=== PATIENT | male | born 1960 | race Caucasian/White ===

== ENCOUNTER → 2020-07-12 14:53 | Outpatient (BNVA) | payer MEDICARE, SELFPAY | PROVIDERS: Family Provider Nurse Practitioner Family; PCP Nurse Practitioner Family; Visit Provider Emergency Medicine | DX: Z20.828 Contact with and (suspected) exposure to other viral communicable diseases (principal); J40 Bronchitis, not specified as acute or chronic; R68.89 Other general symptoms and signs | CPT/HCPCS: 87400; 87635 ==

== ENCOUNTER 2021-09-25 18:03 | Inpatient (IN) | payer OTHER, MEDICARE, MEDICAID, SELFPAY ==
[2021-09-25 18:37] VITALS: BP 154/99; PULSE 84; RESP 15; TEMP 36.7; O2SAT 96; BMI 32.5
[2021-09-25 18:43] VITALS: RESP 15
--- NOTE | 2021-09-25 18:49 | XRR_ITS ---
PROCEDURE INFORMATION: Exam: XR Chest Exam date and time: 09/25/2021 6:49 PM Age: 61 years old Clinical indication: Chest wall pain; Prior surgery; Surgery date: 6+ months; Surgery type: Stents; Additional info: Chest pain TECHNIQUE: Imaging protocol: XR of the chest. Views: 1 view. COMPARISON: No relevant prior studies available. FINDINGS: Lungs: Unremarkable. No consolidation. Pleural spaces: Unremarkable. No pleural effusion. No pneumothorax. Heart/Mediastinum: Unremarkable. No cardiomegaly. Bones/joints: Unremarkable. XR/XR chest 1V portable [id number] IMPRESSION: No acute findings.
[2021-09-25 18:57] LABS: Basophils % 0.4 %; Eosinophils # 0.2 10^3/uL (0.0-0.8); Hematocrit 42.9 % (42.0-52.0); Hemoglobin 14.7 g/dL (11.7-16.6); Lymphocytes # 2.9 10^3/uL (0.8-4.8); Lymphocytes % 36.8 %; Mean Corpuscular HGB Conc 34.3 g/dL (30.0-36.0); Mean Corpuscular Hemoglobin 28.2 pg (28.0-34.0); Mean Corpuscular Volume 82.3 fl (80-94); Mean Platelet Volume 10.2 fL (7.4-10.4); Monocytes # 0.6 10^3/uL (0.2-0.9); Monocytes % 7.4 %; Neutrophils # 4.18 10^3/uL (1.8-7.7); Neutrophils % 53.1 %; Nucleated Red Blood Cells % 0 %; Platelet Count 279 10^3/cmm (130-400); Red Blood Count 5.21 10^6/uL (4.1-5.3); Red Cell Distribution Width 12.9 % (12.1-15.1); White Blood Count 7.9 10^3/uL (4.0-10.0)
[2021-09-25 19:15] LABS: Blood Urea Nitrogen 10 mg/dL (8-23); Calcium 9.1 mg/dL (8.5-10.5); Carbon Dioxide 23 mmol/L (22-29); Chloride 94 mmol/L (98-107); Glomerular Filtration Rate 56.3 mL/min (90-130); Osmolality Calculated 295 mOsm/kg (285-295); Sodium 131 mmol/L (136-145); Troponin(5th) Baseline 14 ng/L (0-15)
[2021-09-25 19:22] LABS: D Dimer 0.45 ug/mIFEU (0-0.59)
[2021-09-25 19:28] LABS: Anion Gap 18.6 (5-19); Glucose 538 mg/dL (65-115); Potassium 4.6 mmol/L (3.5-5.1)
[2021-09-25] MEDS: sodium chloride 0.9% 1,000 ML 999 ML IV (20:10)
--- NOTE | 2021-09-25 20:10 | ED_ITS ---
HPI - General Adult General: Chief complaint: Chest Pain Stated complaint: SHARP BURNING CHEST PAIN Time Seen by Provider: 09/25/21 18:49 History of Present Illness: HPI narrative: CC: Chest Pain HPI: This is a [61] yo patient hx of CAD s/p stents x 6 followed by Cardiology from [facility] presenting to the ED complaining of worsening chest pain and dyspnea x 1 week. Pain is not tearing in nature and does not radiate to the back. Pain not associated with vomiting or PO intake. Denies any recent sympathomimetic drug use. Patient denies any cough. Denies palpitations, dysphagia, diaphoresis, radiation of pain to bilateral arms, jaw. Denies F/N/V/D. Patient denies any recent immobility, surgery, unilateral leg swelling, or prior PE. Patient denies any orthopnea. Onset: 1 week ago Duration: ongoing for the last week Location: home Severity: mild/moderate Associated symptoms: Reports chest pain and dyspnea; Deny nausea, rash, palpitations or vomiting Review of Systems Const: Denies: fever(s) or chills Eyes: Denies: change in vision ENMT: Denies: mouth pain Card: Reports: chest pain; Denies: palpitations Resp: Reports: dyspnea; Denies: non-productive cough GI: Denies: abdominal pain, nausea, vomiting or diarrhea : Denies: dysuria Musc: Denies: extremity pain Skin/Breast: Denies: rash or new lesions Neuro: Denies: weakness in extremities Psych: Reports: other (Normal mood) Alejandro/Lymph: Denies: easy bruising PFS ED PFSH: Medical History (Updated 09/25/21 @ 20:21 by Ion Shafer MD) CAD (coronary artery disease) Chest pain Chronic obstructive pulmonary disease Shortness of breath Surgical History (Updated 09/25/21 @ 17:08 by EUNICE Martin) Coronary angioplasty status Social History Smoking and tobacco status: former smoker Alcohol intake: never Physical Exam Const: COMMON NORMALS: alert HENMT: COMMON NORMALS: atraumatic HEAD & SCALP: atraumatic MOUTH: moist mucous membranes not abnormal Eye: COMMON NORMALS: EOMs intact bilaterally and conjunctivae normal CONJUNCTIVA: Yes conjunctivae normal Neck/C-Spine: COMMON NORMALS: full ROM and supple Resp: COMMON NORMALS: normal respiratory effort and clear to auscultation bilaterally AUSCULTATION: clear to auscultation bilaterally Cardio: COMMON NORMALS: regular rate RATE: regular rate GI: COMMON NORMALS: Soft to palpation and non-tender PALPATION: Yes Soft to palpation Extremity: COMMON NORMALS: full ROM Neuro: SENSORIUM/ORIENTATION: Yes alert MOTOR EXAM: No Abnormal motor strength present and Other motor observations present (no focal motor deficits) Psych: COMMON NORMALS: speech normal SPEECH: Yes normal speech MOOD & AFFECT: Yes euthymic mood Course Vital Signs: Vital signs: Vital Signs Temperature 98.0 F 09/25/21 18:37 Pulse Rate 84 09/25/21 18:37 Respiratory Rate 15 09/25/21 18:43 Blood Pressure 154/99 09/25/21 18:37 Pulse Oximetry 96 09/25/21 18:37 MDM - General Adult MDM Narrative: Medical decision making narrative: [61]yo patient w/ hx of CAD s/p stents x 6 presenting to the ED with evaluation of 1 week of worsening chest pain and fatigue. HDS, pulse 2+ radially bilaterally, no signs of fluid overload, AAOx3, neuro exam intact. Given History and Exam today I have no suspicion for ACS, Pneumothorax, Pneumonia, Pulmonary Embolus, Tamponade, Aortic Dissection or other emergent problems as a cause for this presentation. Workup: ECG x 2, CXR, CBC, BMP, Troponin x 2, Dimer Interventions: ASA, nitroglycerin sublingual Findings: ECG: No overt evidence of STEMI, hyperacute T waves, localizable STD or T wave inversions. No evidence of Brugada?s sign, delta wave, epsilon wave, significantly prolonged QTc, or malignant arrhythmia. No Q waves. Other Labs unremarkable for emergent problems. CXR: Without PTX, PNA, or widened mediastinum Last Stress Test: over 1 year ago Dimer wnl [9:00pm] On reassessment, the patient is HDS, no complaints of persistent chest pain in the ED after evaluation. ECG is non-ischemic. Dimer wnl. Patient will admitted for management of high risk chest pain given no recent stress AND worsening chest pain. Glucose of 538 that improved with insulin. Disposition: Admission Lab Data: Labs: Lab Results 09/25/21 09/25/21 09/25/21 18:45 18:45 18:45 WBC 7.9 10^3/uL 10^3/ uL (4.0-10.0) RBC 5.21 10^6/uL 10^6 /uL (4.1-5.3) Hgb 14.7 g/dL g/dL (11.7-16.6) Hct 42.9 % % (42.0-52.0) MCV 82.3 fl fl (80-94) MCH 28.2 pg pg (28.0-34.0) MCHC 34.3 g/dL g/dL (30.0-36.0) RDW 12.9 % % (12.1-15.1) Plt Count 279 10^3/cmm 10^3 /cmm (130-400) MPV 10.2 fL fL (7.4-10.4) Neut % (Auto) 53.1 % % Lymph % (Auto) 36.8 % % [place] % (Auto) 7.4 % % Eos % (Auto) 2.0 % % Baso % (Auto) 0.4 % % Neut # (Auto) 4.18 10^3/uL 10^3 /uL (1.8-7.7) Lymph # (Auto) 2.9 10^3/uL 10^3/ uL (0.8-4.8) [place] # (Auto) 0.6 10^3/uL 10^3/ uL (0.2-0.9) Eos # (Auto) 0.2 10^3/uL 10^3/ uL (0.0-0.8) Baso # (Auto) 0.0 10^3/uL 10^3/ uL (0.0-0.1) Nucleated RBC % (a uto) 0 % % Nucleated RBCs # 0.0 /100WBC /100W BC D-Dimer 0.45 ug/mIFEU ug/ mIFEU (0-0.59) Specimen Type Sample Site ABG pH ABG pCO2 ABG pO2 ABG HCO3 ABG Base Excess Shaun Test Hematocrit O2 Delivery Device FiO2 Outplacement Consultant ID Sodium 131 mmol/L L mmol /L (136-145) Potassium 4.6 mmol/L mmol/L (3.5-5.1) Chloride 94 mmol/L L mmol/ L (98-107) Carbon Dioxide 23 mmol/L mmol/L (22-29) Anion Gap 18.6 (5-19) BUN 10 mg/dL mg/dL (8-23) Creatinine 1.3 mg/dL H mg/dL (0.7-1.2) GFR Calculation 56.3 mL/min L mL/ min (90-130) Glucose 538 mg/dL H* mg/d L (65-115) Calculated Osmolal ity 295 mOsm/kg mOsm/ kg (285-295) Calcium 9.1 mg/dL mg/dL (8.5-10.5) Troponin T Baselin e 09/25/21 09/25/21 18:45 20:09 WBC RBC Hgb Hct MCV MCH MCHC RDW Plt Count MPV Neut % (Auto) Lymph % (Auto) [place] % (Auto) Eos % (Auto) Baso % (Auto) Neut # (Auto) Lymph # (Auto) [place] # (Auto) Eos # (Auto) Baso # (Auto) Nucleated RBC % (a uto) Nucleated RBCs # D-Dimer Specimen Type Arterial Sample Site Radial, right ABG pH 7.46 H (7.35-7.45) ABG pCO2 37.8 mmHg mmHg (35-45) ABG pO2 87.9 mmHg mmHg (80.0-100.0) ABG HCO3 26.5 mmol/L H mmo l/L (22-26) ABG Base Excess 2.6 mmol/L H mmol /L (-2.0-2.0) Shaun Test Pos Hematocrit 46.1 % % (42-52) O2 Delivery Device Room air FiO2 21.0 % % Outplacement Consultant ID Buttr Sodium Potassium Chloride Carbon Dioxide Anion Gap BUN Creatinine GFR Calculation Glucose Calculated Osmolal ity Calcium Troponin T Baselin e 14 ng/L ng/L (0-15) Imaging Data^: Other Imaging: Radiologist's impression: [address] [id number] ReportSigned Patient: Kumar Whelan #: [id number]: 1Acct#:[id number]/Sex: 61 / MADM Date: 09/25/21Loc: ERRoom/Bed:Attending Dr: Ordering Provider/Ordering MD: Ion Shafer MD Date of Service: 09/25/21 Procedure(s): XR chest 1V portable [id number] Accession Number(s): [id number] Report Number: [id number] PROCEDURE INFORMATION: Exam: XR Chest Exam date and time: 09/25/2021 6:49 PM Age: 61 years old Clinical indication: Chest wall pain; Prior surgery; Surgery date: 6+ months; Surgery type: Stents; Additional info: Chest pain TECHNIQUE: Imaging protocol: XR of the chest. Views: 1 view. COMPARISON: No relevant prior studies available. FINDINGS: Lungs: Unremarkable. No consolidation. Pleural spaces: Unremarkable. No pleural effusion. No pneumothorax. Heart/Mediastinum: Unremarkable. No cardiomegaly. Bones/joints: Unremarkable. XR/XR chest 1V portable [id number] IMPRESSION: No acute findings. Dictated By:Randall Aparicio DOSigned By:Randall Aparicio DOSigned Date/Time:09/25/21 1936DD/ 1849 Discharge Plan Discharge Patient Disposition: Admitted As Inpatient Clinical Impression: Chest pain, Hyperglycemia Condition: Stable Coding Level of Care Code ED Professor Of Musicology for Chg Fwd Exam Comprehensive
[2021-09-25 20:21] LABS: ABG PCO2 37.8 mmHg (35-45); ABG PH Result 7.46 (7.35-7.45); Arterial Blood Gas Hematocrit 46.1 % (42-52); Base Excess ABG 2.6 mmol/L (-2.0-2.0); Blood Gas Allen Test Pos; Blood Gas Sample Site Radial, right; Blood Gas Sample Type Arterial; HCO3 ABG 26.5 mmol/L (22-26); Oxygen Device ROOM AIR; PO2 ABG 87.9 mmHg (80.0-100.0)
[2021-09-25] MEDS: nitroglycerin 0.4 mg sublingual Tablet SUBLINGUAL (20:34)
[2021-09-25] MEDS: insulin lispro 100 unit/1 mL 10 UNIT SUBCUT (20:35)
[2021-09-25] MEDS: aspirin 325 mg Tablet PO (20:35)
--- NOTE | 2021-09-25 20:50 | ECG_ITS ---
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 Measurements Intervals [place] Rate: 60 P: 17 WV: 186 QRS: -7 QRSD: 93 T: 60 QT: 403 QTc: 405 Interpretive Statements SINUS RHYTHM NONSPECIFIC T-WAVE ABNORMALITY No previous ECG available for comparison Electronically Signed On 09-25-2021 21:57:24 OYSTER GROWER by Nova Irby M.D. [email or web address]
--- NOTE | 2021-09-25 21:30 | P.HP_ITS ---
Providers/Chief Complaint Admitting Physician: Katelyn Stallworth MD Primary Care Provider: Dr. Byrne at [facility] Chief Complaint: SHARP BURNING CHEST PAIN History of Present Illness Kumar Whelan is a 61 year old male who presented to [facility] with chest pain and shortness of breath. Symptoms began around 6 days ago. He started getting more short of breath primarily when lying down flat. Along with this he has a sharp burning sensation in the center and lower portions of his chest. At its worst this pain is a 6 out of 10. Time of evaluation he milind cribed it as a 1-2 out of 10. No radiation of the pain although he does also describe some discomfort in the epigastric area. In addition to lying down flat the discomfort comes on when he tries to take in a deep breath of cold air. He describes some runny nose and a sore throat associated with bad taste in the back of his mouth off and on. He denies any fevers but does describe some intermittent chills. Unsure if it simply related to the colder weather. He has had both productive and nonproductive cough. Shortness of breath has occurred with exertion but no more than usual necessarily. He has had some dizziness with walking at times lately. Sometimes he feels like the mucus that he is trying to cough up gets stuck. No blood has been noted. He does describe a little bit of increased swelling primarily appreciated when he goes to take his socks off. He has not had any recent sick contacts. He did get 2 doses of COVID vaccination but has not had a booster. He has had nausea but no episode of vomiting. In talking with him for a while he starts to describe his epigastric pain is more severe than the chest pain. At its worst it is a 7 out of 10. He used to take a stomach pill but ran out of it and has not been able to get a refill from the OR. He had run out of it maybe 2 weeks ago. He had tried to be seen at a OR clinic to get his medications refilled without success lately. He has a known history of coronary artery disease and whenever he mentions that he has chest pain he says he gets sent elsewhere for evaluation. He does describe change in bowel habits lately with intermittently explosive stools and other times the opposite problem but does not really consider this change consistent with diarrhea or constipation. He also describes the upper part of his stomach pooching out more than the rest of his abdomen and hurting. He denies any intra-abdominal surgery though he did have ureteral stent one time for kidney stones. Other than not having his stomach medicines he denies any other recent changes in medicines. In the emergency room his initial troponin was normal. EKG did not show acute ST segment changes. Given his cardiac history request was made for admission as he has not had cardiac evaluation in more than a year by his report. In addition to his complaints he was noted to have a blood sugar of 538 which is elevated from the usual 200-300 that he says he has when he checks his blood sugars at home. Review of Systems Const: Denies: fever(s), chills, change in appetite or change in weight Eyes: Denies: change in vision ENMT: Reports: throat pain (mild, described as a burning sensation, bad taste in back of throat) and nasal congestion Card: Reports: chest pain, edema, dyspnea on exertion and orthopnea; Denies: palpitations Resp: Denies: dyspnea, productive cough or non-productive cough GI: Reports: abdominal pain, nausea, heartburn, early satiety, bloating and change in bowel habits (quite variable, occassionally explosive, not really diarrhea/constipation); Denies: vomiting, excessive flatus, hematochezia or melena : Denies: difficulty urinating or hematuria Musc: Reports: back pain (chronic) Skin/Breast: Denies: rash or sores Neuro: Reports: headache(s) and dizziness; Denies: numbness in extremities, weakness in extremities or difficulty walking Psych: Denies: anxiety or depression Endo: Reports: polyuria, polydipsia and tired all the time Alejandro/Lymph: Denies: easy bruising or easy bleeding Medications/Allergies Home Medications Medication Instructions Recorded Confirmed Last Taken Type aspirin 81 mg tablet,delayed 81 mg PO DAILY 01/13/20 09/25/21 09/25/21 History release atorvastatin 80 mg tablet 80 mg PO DAILY 01/13/20 09/25/21 09/25/21 History clopidogrel 75 mg tablet 75 mg PO DAILY 01/13/20 09/25/21 09/25/21 History gabapentin 300 mg capsule 300 mg PO TID 01/13/20 09/25/21 09/25/21 History metformin 1,000 mg tablet 1,000 mg PO BID 01/13/20 09/25/21 09/25/21 History metoprolol succinate 25 mg 12.5 mg PO DAILY 01/13/20 09/25/21 09/25/21 History tablet,extended release 24 hr pantoprazole 20 mg tablet,delayed 20 mg PO DAILY 01/13/20 09/25/21 Unknown History release trazodone 100 mg tablet 100 mg PO DAILY 01/13/20 09/25/21 09/24/21 History albuterol sulfate 90 mcg/actuation 2 puff INHALATION Q6H PRN #8.5 gm 07/12/20 09/25/21 09/24/21 Rx aerosol inhaler fluticasone propionate 50 1 spray INTRANASAL BID #18.2 ml 05/31/21 09/25/21 Unknown Rx mcg/actuation nasal spray,suspension loratadine 10 mg tablet 10 mg PO DAILY #60 tab 05/31/21 09/25/21 09/25/21 Rx budesonide-formoterol HFA 160 2 inh INHALATION BID #10.2 g 06/06/21 09/25/21 Unknown Rx mcg-4.5 mcg/actuation aerosol inhaler hydrocortisone 10 mg tablet 10 mg PO TID 09/25/21 09/25/21 09/25/21 History insulin glargine 42 unit SUBCUT BID 09/26/21 09/26/21 09/25/21 History insulin lispro [Humalog U-100 14 unit SUBCUT TIDWM 09/26/21 09/26/21 09/25/21 H istory Insulin] isosorbide mononitrate 30 mg PO DAILY 09/26/21 Unknown History Allergies Allergy/AdvReac Type Severity Reaction Status Date / Time prednisone AdvReac agitation, Verified 09/25/21 16:39 vomiting Additional Medication Information The above medication, while showing as confirmed, is not necessarily accurate. The list is from 2019. Patient does not have his current medications here with him[facility] He is on lantus 42 units twice per day and humalog 14 units 3 times per day with meals. Others may be the same but not certain presently. PFSH Acute PFSH: Medical History (Updated 09/25/21 @ 22:21 by Katelyn Stallworth MD) Benign prostate hyperplasia CAD (coronary artery disease) Chronic obstructive pulmonary disease Diabetes mellitus, type II, insulin dependent Fatty liver GERD (gastroesophageal reflux disease) Hyperlipidemia Hypertension Kidney stones Surgical History (Updated 09/25/21 @ 21:56 by Katelyn Stallworth MD) History of coronary artery stent placement reports 6-7 stents, done at [facility] History of shoulder surgery as a child History of urethral stent Family History (Updated 09/26/21 @ 03:15 by Katelyn Stallworth MD) Father CAD (coronary artery disease) Lung cancer Diabetes Social History (Updated 09/25/21 @ 21:57 by Katelyn Stallworth MD) Smoking and tobacco status: former smoker Alcohol intake: former Former alcohol use details: quit ~ 16 years ago, former heavy drinker Substance/Drug Use: never Household members: spouse Marital status: service: Yes Vitals/I&O/Wt Last Vital Signs Temp 98.0 F 09/25/21 18:37 Pulse 84 09/25/21 18:37 Resp 15 09/25/21 18:43 BP 154/99 09/25/21 18:37 Pulse Ox 96 09/25/21 18:37 Weight last 48 hrs Weight 91.626 kg Physical Exam Narrative: EXAM NARRATIVE: Constitutional: Awake and alert, looks uncomfortable, cooperative HEENT: Normocephalic, atraumatic, mild conjunctival injection, nasopharynx with clear rhinorrhea, oropharynx with dry membranes, no lesions noted, no cobblestoning Neck: Large but supple Respiratory: No rales rhonchi or wheezes noted, respirations are shallow, not reaching full expansion in part because of discomfort in the epigastric area which he holds with attempts at deep inspiration Cardiovascular: Regular rhythm, no murmurs, gallops or rubs, 2+ pulses x4, equal Abdomen: Soft, rotund, tender in the epigastrium with some voluntary guarding but no rebound, with change in positions in bed, has an approximately 6in w x 4in l bulging in the midline in epigastic/supraumbilical area, resolves with relaxing of abdominal muscles, no discoloration, no definitive palpable defect noted but habitus limits evaluation, postive normoactive bowel sounds, no tympany Extremities: trace ankle edema, no calf tenderness Skin: Dry, no rashes Neuro: Speech clear, face symmetric, moves all extremities Psych: Normal affect, anxious appearing Data : 09/25/21 18:45 09/25/21 18:45 Other Labs: Radiology Impressions Chest X-Ray 09/25/21 18:49 IMPRESSION: No acute findings. Laboratory Results WBC 7.9 10^3/uL (4.0-10.0) 09/25/21 18:45 RBC 5.21 10^6/uL (4.1-5.3) 09/25/21 18:45 Hgb 14.7 g/dL (11.7-16.6) 09/25/21 18:45 Hct 42.9 % (42.0-52.0) 09/25/21 18:45 MCV 82.3 fl (80-94) 09/25/21 18:45 MCH 28.2 pg (28.0-34.0) 09/25/21 18:45 MCHC 34.3 g/dL (30.0-36.0) 09/25/21 18:45 RDW 12.9 % (12.1-15.1) 09/25/21 18:45 Plt Count 279 10^3/cmm (130-400) 09/25/21 18:45 MPV 10.2 fL (7.4-10.4) 09/25/21 18:45 Neut % (Auto) 53.1 % 09/25/21 18:45 Lymph % (Auto) 36.8 % 09/25/21 18:45 Reynolds % (Auto) 7.4 % 09/25/21 18:45 Eos % (Auto) 2.0 % 09/25/21 18:45 Baso % (Auto) 0.4 % 09/25/21 18:45 Neut # (Auto) 4.18 10^3/uL (1.8-7.7) 09/25/21 18:45 Lymph # (Auto) 2.9 10^3/uL (0.8-4.8) 09/25/21 18:45 Reynolds # (Auto) 0.6 10^3/uL (0.2-0.9) 09/25/21 18:45 Eos # (Auto) 0.2 10^3/uL (0.0-0.8) 09/25/21 18:45 Baso # (Auto) 0.0 10^3/uL (0.0-0.1) 09/25/21 18:45 Nucleated RBC % (auto) 0 % 09/25/21 18:45 Nucleated RBCs # 0.0 /100WBC 09/25/21 18:45 D-Dimer 0.45 ug/mIFEU (0-0.59) 09/25/21 18:45 Specimen Type Arterial 09/25/21 20:09 Sample Site Radial, right 09/25/21 20:09 ABG pH 7.46 (7.35-7.45) H 09/25/21 20:09 ABG pCO2 37.8 mmHg (35-45) 09/25/21 20:09 ABG pO2 87.9 mmHg (80.0-100.0) 09/25/21 20:09 ABG HCO3 26.5 mmol/L (22-26) H 09/25/21 20:09 ABG Base Excess 2.6 mmol/L (-2.0-2.0) H 09/25/21 20:09 Shaun Test Pos 09/25/21 20:09 Hematocrit 46.1 % (42-52) 09/25/21 20:09 O2 Delivery Device Room air 09/25/21 20:09 FiO2 21.0 % 09/25/21 20:09 Commercial Loan Closer ID Buttr 09/25/21 20:09 Sodium 131 mmol/L (136-145) L 09/25/21 18:45 Potassium 4.6 mmol/L (3.5-5.1) 09/25/21 18:45 Chloride 94 mmol/L (98-107) L 09/25/21 18:45 Carbon Dioxide 23 mmol/L (22-29) 09/25/21 18:45 Anion Gap 18.6 (5-19) 09/25/21 18:45 BUN 10 mg/dL (8-23) 09/25/21 18:45 Creatinine 1.3 mg/dL (0.7-1.2) H 09/25/21 18:45 GFR Calculation 56.3 mL/min (90-130) L 09/25/21 18:45 Glucose 538 mg/dL (65-115) H* 09/25/21 18:45 Calculated Osmolality 295 mOsm/kg (285-295) 09/25/21 18:45 Calcium 9.1 mg/dL (8.5-10.5) 09/25/21 18:45 Troponin T Baseline 14 ng/L (0-15) 09/25/21 18:45 Troponin T 120 Minute 14.69 ng/L (0-15) 09/25/21 20:43 Delta Troponin T 0.69 ABS# (0-10) 09/25/21 20:43 A&P Assessment and plan (1) Epigastric pain: This seems to be patient's most pressing complaint after talking to him for a while in terms of it causing him the most discomfort and being a change from baseline. He describes epigastric discomfort, burning pain in his chest and also without provocation described a bad taste in his mouth and feeling nauseated. Has recently run out of his stomach medication which he thinks may have been Protonix. No blood in his stools or black tarry stools. Clinically sounds like significant reflux plus or minus associated gastritis/esophagitis without hemorrhage. Do need to keep in mind the possibility of an anginal equivalent given his known cardiac history. Another consideration is gastroparesis due to uncontrolled diabetes particularly with some of the changes in bowel habits that he describes. Patient does not describe recent steroid or NSAID use but has had both in the past. Status: Acute (2) Chest pain: Substernal and lower sternal primarily described as a burning, sharp pain. Not necessarily like what he had previously when he had to have cardiac intervention. Present suspicion is that this is more GI related to above but do have to keep in mind his history. Status: Acute Qualifiers: Chest pain type: precordial pain Qualified Code(s): R07.2 - Precordial pain (3) CAD (coronary artery disease): With multiple prior cardiac interventions including 6 or 7 stents by his report Status: Chronic Qualifiers: Associated angina: unspecified whether angina present Coronary Disease- Associated Artery/Lesion type: [place] artery [place] vs. transplanted heart: [place] heart Qualified Code(s): I25.10 - Atherosclerotic heart disease of [place] coronary artery without angina pectoris (4) Diabetes mellitus, type II, insulin dependent: Uncontrolled currently with significant hyperglycemia although he has not had his usual evening and dinnertime doses of insulin. Status: Chronic (5) GERD (gastroesophageal reflux disease): Chronically on PPI though has been out of it for a couple of weeks, presently suspect some associated esophagitis and gastritis but no evidence of hemorrhage with it. Worsening reflux could potentially account for increasing shortness of breath when supine, congestion in addition to nausea and pain that he is experiencing. Status: Chronic (6) Hypertension: Suboptimally controlled, home medications not presently clear Status: Chronic Qualifiers: Hypertension type: primary hypertension Qualified Code(s): I10 - Essential (primary) hypertension (7) Hyperlipidemia: On chronic statin therapy, type unknown Status: Chronic (8) Chronic obstructive pulmonary disease: Related to former tobacco use, possible acute on chronic exacerbation with some of the symptoms he describes though still currently leaning towards a GI source Status: Chronic Additional A&P Information Observation admission Continue serial cardiac enzymes and EKGs Telemetry monitoring Check BNP and echocardiogram Aspirin, Plavix, beta-blockade, statin Nitroglycerin Lipid panel in the morning Pending results of above determine plan for further cardiac testing inpatient versus outpatient followup to his ultrasonic hand solderer Check lactic acid KUB given abdominal distention and epigastric discomfort IV PPI now and twice daily orally tomorrow GI cocktail x1 this evening Stool softeners Recheck hemoglobin to ensure no drop, consider stool Hemoccult if does High-dose sliding scale insulin plus long-acting Lantus Check hemoglobin A1c As needed breathing treatments Need to clarify home medication list and address accordingly once were able to get the information Supportive care otherwise Have presently ordered SCDs for DVT prophylaxis until I get a little bit more information regarding epigastric/abdominal pain Plans discussed with patient and he was given opportunity to ask questions Anticipate discharge home with outpatient follow-up, [facility] [place] [facility] ultrasonic hand solderer at [facility] Request records from [facility] regarding prior cardiac interventions Full code Attestations Medical Necessity Statement*: Currently anticipate a stay less than two midnights in a gentleman presenting with chest pain, epigastric pain, increasing shortness of breath and uncontrolled blood sugars with a known history of coronary artery disease with prior stents. Present suspicion is for a GI source of his symptoms but given his history at significant risk for vascular etiology. Further evaluation under observation status is warranted as described. Coding Level of Care Code Acute Extracorporeal Circulation Specialist for Dayana Méndez Diagnoses Epigastric pain R10.13 Chest pain R07.2 Chest pain type: precordial pain CAD (coronary artery disease) I25.10 Associated angina: unspecified whether angina present Coronary Disease-Associated Artery/Lesion type: [place] artery [place] vs. transplanted heart: [place] heart Diabetes mellitus, type II, insulin dependent E11.9; Z79.4 GERD (gastroesophageal reflux disease) K21.9 Hypertension I10 Hypertension type: primary hypertension Hyperlipidemia E78.5 Chronic obstructive pulmonary disease J44.9
[2021-09-25 21:39] LABS: Troponin 5 2HR 14.69 ng/L (0-15); Troponin 5 2HR Delta 0.69 ABS# (0-10)
[2021-09-25 22:00] VITALS: PULSE 71
--- NOTE | 2021-09-25 22:03 | XRR_ITS ---
PROCEDURE INFORMATION: Exam: XR Abdomen Exam date and time: 09/25/2021 10:03 PM Age: 61 years old Clinical indication: Nausea; Abdominal pain; Localized; Upper; Additional info: Epigastric pain, distention, hernia TECHNIQUE: Imaging protocol: XR of the abdomen. Views: Frontal supine view of the abdomen. 1 View. COMPARISON: CR XR chest 1V portable [id number] 09/25/2021 7:14 PM FINDINGS: Gastrointestinal tract: Normal. No bowel dilation. Bones/joints: Unremarkable. XR/XR KUB portable [id number] IMPRESSION: No acute findings.
[2021-09-25 22:15] VITALS: BP 173/98; PULSE 72; RESP 18; TEMP 36.7; O2SAT 96
[2021-09-25 22:26] LABS: INR 0.86 (0.8-1.2)
[2021-09-25 22:49] LABS: NT Pro B Type Natriuretic Pept 21 pg/mL (0-125); Procalcitonin 0.05 ng/mL (0-0.5)
[2021-09-25] MEDS: atorvastatin 40 mg Tablet 80 MG PO (22:54)
[2021-09-25] MEDS: insulin glargine 100 units/1 mL 30 UNIT SUBCUT (22:54)
[2021-09-25] MEDS: aspirin 81 mg EC Tablet PO (22:54)
[2021-09-25] MEDS: pantoprazole 40 mg SDV IVP (22:55)
[2021-09-25] MEDS: nitroglycerin 1 gm/inch oint Pkt 0.5 INCH TOPICAL (22:56)
[2021-09-25] MEDS: acetaminophen 325 mg Tablet 650 MG PO (22:58)
[2021-09-25 23:00] LABS: Alkaline Phosphatase 163 IU/L (40-130); Globulin 2.6 g/dL (1.3-4.6); Total Bilirubin 0.2 mg/dL (0.15-1.2); Total Protein 6.6 g/dL (6.6-8.7)
[2021-09-25] MEDS: lidocaine 2% viscous 15 ML, aluminum-mag hydrox-simethicon 30 ML, sucralfate oral liq 1 GM PO (23:03)
[2021-09-25] MEDS: metoprolol tartrate 25 mg Tablet PO (23:04)
[2021-09-25] MEDS: ondansetron 2 mg/ML SDV 2 mL 4 MG IVP (23:29)
[2021-09-25 23:32] LABS: Alanine Aminotransferase < 5 U/L (0-41); Aspartate Amino Transferase 5 U/L (0-40)
[2021-09-25 23:37] VITALS: PULSE 63; RESP 16; O2SAT 97
[2021-09-25 23:46] LABS: Glucose Point of Care 330 mg/dL (70-110)
[2021-09-26] VITALS (13 sets, daily range): BP systolic 130–152; BP diastolic 67–89; PULSE 59–87; RESP 16–22; TEMP 36.6–36.7; O2SAT 93–97
--- NOTE | 2021-09-26 00:50 | ECG_ITS ---
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 Measurements Intervals [place] Rate: 58 P: 42 MA: 200 QRS: 29 QRSD: 76 T: 81 QT: 405 QTc: 401 Interpretive Statements SINUS BRADYCARDIA ST ELEVATION, CONSIDER INFERIOR INJURY [MARKED ST ELEVATION W/O NORMALLY INFLECTED T WAVE IN II/aVF] ACUTE VT Compared to ECG 09/25/2021 20:54:04 ST (T wave) deviation now present Myocardial infarct finding now present Sinus rhythm no longer present T-wave abnormality no longer present Electronically Signed On 09-26-2021 17:55:46 METAL FITTER by Cynthia Cruz M.D. [id number]
[2021-09-26 01:10] LABS: Troponin 5 6HR 15.02 ng/L (0-15); Troponin 5 6HR Delta 1.02 ng/L (0-12)
[2021-09-26 01:11] LABS: Lactic Sepsis W/Reflex 1.7 mmol/L (0.5-2.2)
[2021-09-26 01:19] LABS: Adenovirus Not Detected (NOT DETECT); Chlamydia Pneumoniae Not Detected (NOT DETECT); Coronavirus 229E,HKU1,NL63,OC4 Not Detected (NOT DETECT); Human Metapneumovirus Not Detected (NOT DETECT); Human Rhinovirus/Enterovirus Not Detected (NOT DETECT); Influenza A Not Detected (NOT DETECT); Influenza A H1 Not Detected (NOT DETECT); Influenza A H1-2009 Not Detected (NOT DETECT); Influenza A H3 Not Detected (NOT DETECT); Influenza B Not Detected (NOT DETECT); Mycoplasma Pneumoniae Not Detected (NOT DETECT); Parainfluenza Virus Type 1 Not Detected (NOT DETECT); Parainfluenza Virus Type 2 Not Detected (NOT DETECT); Parainfluenza Virus Type 3 Not Detected (NOT DETECT); Parainfluenza Virus Type 4 Not Detected (NOT DETECT); Respiratory Syncytial Virus A Not Detected (NOT DETECT); Respiratory Syncytial Virus B Not Detected (NOT DETECT); SARS-COV-2 Not Detected (NOT DETECT)
[2021-09-26 01:20] LABS: Chol HDL Ratio 8.43 mg/dL (1.0-5.00); Cholesterol 194 mg/dL (0-200); HDL Cholesterol 23 mg/dL (60-100)
[2021-09-26 01:37] LABS: Triglycerides 1725 mg/dL (0-150)
[2021-09-26 01:57] LABS: LDL Cholesterol Direct 32 mg/dL (0-100)
[2021-09-26] MEDS: nitroglycerin 1 gm/inch oint Pkt 0.5 INCH TOPICAL ×4 (03:42→21:53)
--- NOTE | 2021-09-26 03:46 | PC.NURSE ---
Admit Note Patient admitted to [facility] from ED via stretcher. Covering service notified. Patient presents with c/o chest pain. Orders reviewed & will continue to monitor. Patient and/or employee representative oriented to environment, equipment, and informed of the following as found in the admission booklet: patient rights & responsibilities, visitor policy, hand and respiratory hygiene practice. Other education includes: reportable s/s, prescribed medications, activity orders. Patient and/or employee representative Verbalized understanding of all teaching.
[2021-09-26 06:37] LABS: Glucose Point of Care 274 mg/dL (70-110)
[2021-09-26 07:23] LABS: Anion Gap 17.9 (5-19); Blood Urea Nitrogen 15 mg/dL (8-23); Calcium 8.6 mg/dL (8.5-10.5); Carbon Dioxide 23 mmol/L (22-29); Chloride 99 mmol/L (98-107); Creatinine Clr Calc Pharmacy 103.2383; Glomerular Filtration Rate 98.6 mL/min (90-130); Glucose 263 mg/dL (65-115); Magnesium 1.9 mg/dL (1.7-2.3); Osmolality Calculated 292 mOsm/kg (285-295); Phosphorus 2.9 mg/dL (2.5-4.5); Potassium 3.9 mmol/L (3.5-5.1); Sodium 136 mmol/L (136-145)
[2021-09-26 07:31] LABS: Estmated Average Glucose 266; Hemoglobin A1C 10.9 % (4.0-6.0)
[2021-09-26] MEDS: insulin lispro 100 unit/1 mL SUBCUT ×4 (08:10→21:53)
[2021-09-26] MEDS: insulin glargine 100 units/1 mL 30 UNIT SUBCUT ×2 (08:15→21:53)
--- NOTE | 2021-09-26 08:16 | ECG_ITS ---
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 Interpretive Statements NAME OF STUDY: LEXISCAN SESTAMIBI STRESS TEST INDICATION: Chest Pain PROCEDURE: At the baseline, the blood pressure was 143/80 mmHg, oxygen saturation 96% with a heart rate of 61 bpm. The electrocardiogram showed normal sinus rhythm, normal axis with isolated PVC. The Lexiscan was infused over a period of 20 seconds. A total of 0.4 milligrams of Lexiscan was infused. The stress phase was continued for a total of 5 minutes. Heart rate at the end of the stress phase was 74 bpm, oxygen saturation 96% with a blood pressure of 154/68 mmHg. The EKG at the peak infusion revealed sinus rhythm with no significant ST-T wave changes. Isolated PVCs noted during Lexiscan infusion. The study was terminated due to protocol completion. Sestamibi was injected 20 seconds after the Lexiscan infusion. Blood pressure at the end of the recovery phase was 150/69 mm Hg, oxygen saturation 94% with a heart rate of 86 beats per minute. CONCLUSION: 1. No significant EKG changes with the LexiScan infusion. 2. No LexiScan induced chest pain or cardiac arrhythmia. 3. Normal blood pressure and heart rate response. 4. Sestamibi/sestamibi perfusion scan pending; see separate report. Electronically Signed On 09-29-2021 16:49:21 GROUP MANAGING DIRECTOR by Nova Irby M.D. [id number]
[2021-09-26] MEDS: budesonide 0.5 mg/2 mL Neb INHALATION ×2 (08:23→21:26)
--- NOTE | 2021-09-26 08:32 | CT_ITS ---
WS: [id number] CT ABDOMEN AND PELVIS WITH CONTRAST HISTORY: rule out pancreatitis TECHNIQUE: Imaging performed of the abdomen and pelvis with IV contrast. Single phase imaging of the abdomen. Coronal and sagittal reformats are submitted. All CT scans at [facility] use at [address] one of these dose optimization techniques: automated exposure control; mA and/or kV adjustment per patient size (includes targeted exams where dose is matched to clinical indication); or iterative re construction. IV CONTRAST: Omnipaque 300; 95 mL IV. Oral contrast: No DLP: 1635.29 mGy.cm COMPARISON: None available. Lower thorax: Lung bases are clear. Heart is normal size. No hiatal hernia. Liver/biliary system: Normal size liver with mild hepatic steatosis. Gallbladder: Normal. No gallstones or wall thickening. No pericholecystic fluid. Pancreas: Normal size pancreas and pancreatic duct. No adjacent inflammation. Spleen: Normal size spleen. No mass or infarct. Adrenal glands: Normal. Right kidney: Normal. Left kidney: Normal. Aorta: Mild atherosclerosis with no aneurysm. Lymphadenopathy: None. Free fluid: None. GI tract: Normal appendix. No GI tract obstruction. There are numerous diverticula in the descending and sigmoid colon. Mild narrowing of the lumen and wall thickening since the sigmoid. No obstruction. No acute diverticulitis. Abdominal wall: Unremarkable abdominal wall. No hernia. Pelvis: Nondistended urinary bladder. No free fluid or adenopathy. Bones: Unremarkable. CT/CT abdomen pelvis w con* [id number] IMPRESSION: 1. No evidence for acute pancreatitis. 2. Mild atherosclerosis aorta. 3. Significant diverticulosis in the descending and sigmoid colon without acut e diverticulitis. No free fluid or free air.
[2021-09-26 08:55] LABS: Basophils # 0.1 10^3/uL (0.0-0.1); Basophils % 0.7 %; Eosinophils # 0.2 10^3/uL (0.0-0.8); Eosinophils % 2.4 %; Hemoglobin 15.3 g/dL (11.7-16.6); Lymphocytes # 3.4 10^3/uL (0.8-4.8); Lymphocytes % 39.2 %; Mean Corpuscular HGB Conc 32.6 g/dL (30.0-36.0); Mean Corpuscular Hemoglobin 26.7 pg (28.0-34.0); Mean Corpuscular Volume 82.2 fl (80-94); Mean Platelet Volume 9.5 fL (7.4-10.4); Monocytes # 0.5 10^3/uL (0.2-0.9); Monocytes % 5.7 %; Neutrophils # 4.53 10^3/uL (1.8-7.7); Neutrophils % 51.8 %; Nucleated Red Blood Cells % 0 %; Platelet Count 302 10^3/cmm (130-400); Red Blood Count 5.72 10^6/uL (4.1-5.3); Red Cell Distribution Width 13.1 % (12.1-15.1); White Blood Count 8.8 10^3/uL (4.0-10.0)
[2021-09-26] MEDS: iohexol 300 mg/mL 100 mL Btl IV (08:56)
[2021-09-26 09:20] LABS: Amylase 79 U/L (28-100); Anion Gap 17.2 (5-19); Blood Urea Nitrogen 15 mg/dL (8-23); Calcium 9.5 mg/dL (8.5-10.5); Carbon Dioxide 24 mmol/L (22-29); Chloride 100 mmol/L (98-107); Creatinine Clr Calc Pharmacy 103.2383; Glomerular Filtration Rate 98.6 mL/min (90-130); Glucose 250 mg/dL (65-115); Lipase 37 U/L (13-60); Osmolality Calculated 293 mOsm/kg (285-295); Potassium 4.2 mmol/L (3.5-5.1); Sodium 137 mmol/L (136-145)
[2021-09-26 09:54] LABS: Triglycerides 792 mg/dL (0-150)
[2021-09-26 10:12] LABS: LDL Cholesterol Direct 41 mg/dL (0-100)
[2021-09-26 10:49] LABS: Glucose Point of Care 184 mg/dL (70-110)
[2021-09-26] MEDS: metoprolol tartrate 25 mg Tablet PO ×2 (11:26→21:52)
--- NOTE | 2021-09-26 13:25 | PM.PN ---
Subjective Subjective: Interval history: Seen this morning. He states he is constipated. He also complains of continued epigastric pain which is intermittent. He says he ran out of his Protonix recently. He has been having heartburn as well. He also does not believe his chest pain is cardiac in origin but again he could be wrong. He did state that he has had an echo and stress test in the past but does not member how long ago. He is unable to give me a detailed cardiac history. He also says when he eats he gets pain in the epigastric region. He has also been nauseous but has not really vomited since he has been in the hospital. Vitals/I&O/Wt Last Vital Signs Temp 98.1 F 09/26/21 11:27 Pulse 71 09/26/21 11:27 Resp 18 09/26/21 11:27 BP 143/74 09/26/21 11:27 Pulse Ox 94 09/26/21 11:27 09/25/21 09/26/21 09/26/21 22:59 06:59 14:59 Intake Total 832.5 / 832.5 720 / 1552.5 Output Total 540 / 540 Balance 832.5 / 832.5 180 / 1012.5 Weight last 48 hrs Weight 90.129 kg Weight 91.626 kg Physical Exam Narrative: EXAM NARRATIVE: General: Alert oriented x3, patient seen laying in bed appearing a little uncomfortable due to epigastric pain. HEENT: Normocephalic, atraumatic, EOMI, breathing normally, normal respiratory effort no acute distress. Does appear slightly uncomfortable due to epigastric pain. Cardio: Regular rate rhythm, normal S1-S2, no murmurs rubs gallops, Respiratory: Good bilateral air entry, no wheezes no rhonchi appreciated GI: Abdomen soft, mildly tender to palpation at epigastric region, nondistended, bowel sounds + Behavior: Appropriate and cooperative Extremities: Pulses 2+, no edema, no cyanosis Data : 09/26/21 08:48 09/26/21 08:48 A&P Assessment and plan (1) Epigastric pain: Status: Acute (2) GERD (gastroesophageal reflux disease): Status: Chronic (3) Hypertension: Status: Chronic Qualifiers: Hypertension type: primary hypertension Qualified Code(s): I10 - Essential (primary) hypertension (4) Diabetes mellitus, type II, insulin dependent: Status: Chronic (5) Hyperlipidemia: Status: Chronic (6) Chronic obstructive pulmonary disease: Status: Chronic (7) CAD (coronary artery disease): Status: Chronic Qualifiers: Coronary Disease-Associated Artery/Lesion type: [place] artery [place] vs. transplanted heart: [place] heart Associated angina: unspecified whether angina present Qualified Code(s): I25.10 - Atherosclerotic heart disease of [place] coronary artery without angina pectoris Additional A&P Information #Epigastric pain #GERD #Acute pancreatitis?ruled out by imaging and amylase lipase #History of coronary disease status post stents #Baseline COPD #Diabetes mellitus type 2 #Hypertension #Constipation ? I do not believe patient's chest pain is cardiac in origin. It is more pleuritic in nature and also epigastric pain especially when he eats. I will test him for H. pylori stool antigen. I will treat constipation today. Triglycerides are elevated at 700. Patient is already on atorvastatin 80 mg daily. I will defer to his primary care physician to start him on a fenofibrate. ? His cardiac records from [facility] have been requested. Although his chest pain does not seem to be cardiac in origin due to his high risk factors and history of heart disease I would like to do a stress test. Stress test was scheduled for today but he had caffeine at 5 in the morning. I will observe him until tomorrow. Once results of H. pylori antigen are back and constipation is resolved I will reevaluate patient. I would also start Protonix and sucralfate for him. If clinically symptomatically he improves I might discharge him tomorrow to follow-up outpatient for an outpatient stress test. ? Monitor patient in the hospital for symptoms tonight Full code DVT prophylaxis Lovenox Attestations Medical Necessity Statement*: Patient has continued patient has continued epigastric pain. He will need to be monitored in the hospital tonight for treatment of constipation and epigastric pain. He might also potentially need a cardiac stress test. Coding Level of Care Code Acute Mail Handler Equipment Operator for Shahriarg Fwd Diagnoses Epigastric pain R10.13 GERD (gastroesophageal reflux disease) K21.9 Hypertension I10 Hypertension type: primary hypertension Diabetes mellitus, type II, insulin dependent E11.9; Z79.4 Hyperlipidemia E78.5 Chronic obstructive pulmonary disease J44.9 CAD (coronary artery disease) I25.10 Coronary Disease-Associated Artery/Lesion type: [place] artery [place] vs. transplanted heart: [place] heart Associated angina: unspecified whether angina present
--- NOTE | 2021-09-26 13:31 | PC.CHAP ---
Pastoral Care Encounter/Spiritual Assessment Type of Contact [] Declined service promoter salesperson visit [] Patient/Family/Request visit [] Outpatient visit [] Follow-up visit [] Physician referral [] Code/Alert [xx] Routine visit [] Staff referral [] Actively dying [] Patient sleeping [] Family support [] [] Out of room [] Palliative care [] [] Receiving care in room [] Pre-surgical visit [] Trauma [] Long length of stay [] ICU visit [] Other: Relational/Emotional Strength [xx] Patient feels connected with others/family/visitors/staff [] Distress [] Loneliness/isolation [] Abandonment Spirituality of Patient [] Person of Ana [] Attends Congregation of their Ana [] Believes in Prayer [xx] Reads Bible or Cheondoism materials [] There are Spiritual issues to be addressed Senior Escrow Officer Interventions [] Prayer [xx] Active listening [xx] Non-anxious presence [] Spiritual/emotional support [] Crisis/trauma care [] Spiritual counseling [] Bereavement support [] Provided bereavement packet [xx] Provided Bible/devotional materials [] Provided toy/stuffed animal, coloring book to patient or family member [] Provided Communion [] Anointing/[place] [] Salvation [xx] Completed spiritual assessment [] Other: Impact on Illness or Injury [] Angry [] Fearful [] Anxious [] Often cries [] Exhaustion [] Unable to work [] Unable to attend gnosticism [] Unable to walk/stand [] Unable to read [] Unable to drive [] Unable to eat/drink [] Unable to sleep [] Unable to be with family [] Patient intubated [] Other: Summary Patient said he was feeling better. He did not want prayer but did accept [employer] Daily [employer] devotional. He asked service promoter salesperson to ask nurse of a phone laundry route driver is available he could use. I spoke with nurse who stated none were available at present but stated she could call his for him and transfer the call to his room phone where he could ask her to bring a laundry route driver with her when she visits. He later said this would work for him. Time spent with patient 4 minutes
[2021-09-26] MEDS: lactulose oral liq 20 gm/30 mL UDC PO (15:08)
[2021-09-26] MEDS: lidocaine 2% viscous 15 ML, aluminum-mag hydrox-simethicon 30 ML, sucralfate oral liq 1 GM PO (15:26)
[2021-09-26] MEDS: acetaminophen 325 mg Tablet 650 MG PO (15:33)
[2021-09-26 17:00] LABS: Glucose Point of Care 230 mg/dL (70-110)
[2021-09-26] MEDS: pantoprazole DR 40 mg Tablet PO (17:37)
[2021-09-26] MEDS: sucralfate 1 gm Tablet PO ×2 (17:37→21:52)
[2021-09-26] MEDS: fluticasone nasal spray 16gm Btl 1 SPRAY NASAL (17:38)
[2021-09-26 21:24] LABS: Glucose Point of Care 316 mg/dL (70-110)
[2021-09-26] MEDS: ipratropium-albuterol 3 mL Neb INHALATION (21:26)
[2021-09-26] MEDS: atorvastatin 40 mg Tablet 80 MG PO (21:51)
--- NOTE | 2021-09-26 22:21 | USCV_ITS ---
Kumar Whelan Age: 61 Gender: M : 1960 Exam Date: 09/26/2021 07:32 Ordering Phys: Katelyn Stallworth MD Technologist: LARRY Exam Location: [facility] [place] Indication: Dyspnea on exertion, CAD history of stents BP: / HR: 53 Rhythm: Sinus Technical Quality: Adequate MEASUREMENTS (Male / Female) Normal Values 2D ECHO LV Diastolic Diameter PLAX 3.6 cm 4.2 - 5.9 / 3.9 - 5.3 cm LV Systolic Diameter PLAX 2.2 cm IVS Diastolic Thickness 1.3 cm 0.6 - 1.0 / 0.6 - 0.9 cm IVS Systolic Thickness 1.9 cm LVPW Diastolic Thickness 1.2 cm 0.6 - 1.0 / 0.6 - 0.9 cm LVPW Systolic Thickness 1.4 cm LVOT Diameter 2.0 cm LV Ejection Fraction 2D Teich 69.8 % LV Ejection Fraction MOD 2C 45.5 % LV Ejection Fraction 2C AL 53.7 % LA Diameter 3.5 cm LA Width 2.9 cm LA Height 5.0 cm RA Width 3.7 cm RA Height 4.4 cm Aorta at Sinotubular Diameter 2.8 cm M-MODE Aortic Annulus Diameter 3.0 cm LA Ao Ratio MM 1.2 MV E Point Septal Separation 0.0 cm DOPPLER AV Peak Velocity 92.0 cm/s LVOT Peak Velocity 72.0 cm/s AV Area Cont Eq vti 2.0 cm squared AV Area Cont Eq pk 2.6 cm squared MV Peak Velocity 111.0 cm/s MV Area PHT 4.2 cm squared Mitral E to A Ratio 1.3 MV E' Velocity 37.5 cm/s Mitral E to MV E' Ratio 8.6 Mitral E to LV E' Lateral Ratio 6.8 Mitral E to LV E' Septal Ratio 11.7 TR Peak Velocity 209.0 cm/s TR Peak Gradient 17.5 mmHg TV Peak E Velocity 51.0 cm/s Right Atrial Pressure 5.0 mmHg Pulmonary Artery Systolic Pressu 22.5 mmHg PV Peak Velocity 99.0 cm/s RV Acceleration Time 0.1 s RV Ejection Time 0.4 s RV AcT/ET 0.2 FINDINGS Left Ventricle Normal left ventricular size, systolic function and mildly increased wall thickness, with no regional wall motion abnormalities. Left ventricular ejection fraction is estimated at 61 %. Mild concentric left ventricular hypertrophy. Normal diastolic function. Right Ventricle Normal right ventricular size and systolic function. Right ventricular systolic pressure 21 mmHg. Right Atrium Normal right atrial size. Right atrial pressure estimated at 3 mmHg. Left Atrium Normal left atrial size. Mitral Valve Structurally normal mitral valve. No mitral valve stenosis. Trace mitral valve regurgitation. Aortic Valve Mildly thickened trileaflet aortic valve. No aortic valve stenosis. [id number] aortic valve regurgitation. Tricuspid Valve Structurally normal tricuspid valve. Trace tricuspid valve regurgitation. Pulmonic Valve Structurally normal pulmonic valve. Trace pulmonary valve regurgitation. Pericardium No pericardial effusion. Aorta Normal size aortic root and proximal ascending aorta. Normal size inferior vena cava with normal respiratory variation. CONCLUSIONS 1. Normal left ventricular size, systolic function and mildly increased wall thickness, with no regional wall motion abnormalities. Left ventricular ejection fraction is estimated at 61 %. Mild concentric left ventricular hypertrophy. Normal diastolic function. 2. Normal right ventricular size and systolic function. 3. Wdvl-[id number] aortic valve regurgitation. 4. No prior similar studies to compare. Nova Irby MD (Electronically Signed) Final Date: 26 September 2021 13:53 S
[2021-09-27] VITALS (11 sets, daily range): BP systolic 116–154; BP diastolic 64–74; PULSE 55–73; RESP 16–18; TEMP 36.6–37; O2SAT 94–97
[2021-09-27] MEDS: nitroglycerin 1 gm/inch oint Pkt 0.5 INCH TOPICAL ×2 (04:15→09:38)
[2021-09-27] MEDS: sucralfate 1 gm Tablet PO ×4 (06:48→22:26)
[2021-09-27 06:53] LABS: Basophils % 0.2 %; Hematocrit 43.8 % (42.0-52.0); Hemoglobin 14.6 g/dL (11.7-16.6); Lymphocytes # 1.8 10^3/uL (0.8-4.8); Mean Corpuscular HGB Conc 33.3 g/dL (30.0-36.0); Mean Corpuscular Hemoglobin 26.6 pg (28.0-34.0); Mean Corpuscular Volume 79.8 fl (80-94); Monocytes # 0.5 10^3/uL (0.2-0.9); Monocytes % 3.8 %; Neutrophils # 10.39 10^3/uL (1.8-7.7); Neutrophils % 81.8 %; Nucleated Red Blood Cells % 0 %; Platelet Count 330 10^3/cmm (130-400); Red Blood Count 5.49 10^6/uL (4.1-5.3); Red Cell Distribution Width 13.1 % (12.1-15.1); White Blood Count 12.7 10^3/uL (4.0-10.0)
[2021-09-27 07:21] LABS: Anion Gap 17.8 (5-19); Blood Urea Nitrogen 17 mg/dL (8-23); Calcium 10.1 mg/dL (8.5-10.5); Carbon Dioxide 21 mmol/L (22-29); Chloride 90 mmol/L (98-107); Creatinine Clr Calc Pharmacy 103.2383; Glomerular Filtration Rate 98.6 mL/min (90-130); Glucose 257 mg/dL (65-115); Magnesium 1.7 mg/dL (1.7-2.3); Osmolality Calculated 270 mOsm/kg (285-295); Potassium 3.8 mmol/L (3.5-5.1); Sodium 125 mmol/L (136-145)
[2021-09-27] MEDS: budesonide 0.5 mg/2 mL Neb INHALATION ×2 (07:25→20:20)
[2021-09-27] MEDS: aspirin 81 mg EC Tablet PO (09:31)
[2021-09-27] MEDS: metoprolol tartrate 25 mg Tablet PO (09:31)
[2021-09-27] MEDS: clopidogrel 75 mg Tablet PO (09:31)
[2021-09-27] MEDS: insulin lispro 100 unit/1 mL SUBCUT ×4 (09:31→22:18)
[2021-09-27] MEDS: azithromycin 250 mg Tablet 500 MG PO (09:31)
[2021-09-27] MEDS: pantoprazole DR 40 mg Tablet PO ×2 (09:31→18:50)
[2021-09-27] MEDS: insulin glargine 100 units/1 mL 30 UNIT SUBCUT ×2 (09:32→22:19)
[2021-09-27] MEDS: fluticasone nasal spray 16gm Btl 1 SPRAY NASAL ×2 (09:37→18:51)
[2021-09-27 09:49] LABS: Troponin(5th) Baseline 10 ng/L (0-15)
--- NOTE | 2021-09-27 11:07 | ECG_ITS ---
[facility] Test Date: 2021-09-27 Pat Name: Kumar Whelan Department: Room: 250 Gender: Male Circle Edger: : 1960 Requested By: Freya Lezama Order Number: [id number] Chad MD: Nova Irby M.D. Measurements Intervals [place] Rate: 58 P: 34 NH: 181 QRS: 13 QRSD: 101 T: 42 QT: 390 QTc: 384 Interpretive Statements SINUS BRADYCARDIA WITH SINUS ARRHYTHMIA INFERIOR MYOCARDIAL INFARCTION , OF INDETERMINATE AGE [40+ ms Q WAVE AND/OR ST/T ABNORMALITY IN II/aVF] Compared to ECG 09/27/2021 09:08:30 ST (T wave) deviation no longer present Myocardial infarct finding still present Electronically Signed On 09-28-2021 8:32:36 CHILD THERAPIST by Nova Irby M.D. [id number]
--- NOTE | 2021-09-27 11:25 | P.CONIM_ITS ---
Providers/Reason For Consult Consulting Physician/Specialty*: Dr. Irby, cardiology Reason for Consult*: Chest pain, history of CAD Attending Physician: Freya Lezama MD History of Present Illness History of Present Illness Kumar Whelan is a 61 year old male presented with complains of chest pain and exertional shortness of breath x last week. He is a vague historian. He has PMHx of CAD with 6-7 stents in LAD and possibly LCX/RCA with some heart attacks and most recent stent by Dr. Mtz in 2019/2020 for symptoms of chest pain. He started getting stabbing chest pain mostly on taking a big breath of cold air. The pain also described as sharp burning sensation in the center of his chest and left upper abdomen. He is unable to tell me whether the pain starts in chest or abdomen. He also complains of chest pain and some SOB when laying flat.He has had nausea but no episode of vomiting. He describes some runny nose and a sore throat for past week. He denies any fevers but does describe some intermittent chills with both productive and nonproductive cough. +sick contacts (). He did get 2 doses of COVID vaccination but has not had a booster. He tells me he does not think its heart. He had tried to be seen at a [place] clinic to get his stomach medications refilled but as he has known history of coronary artery disease and whenever he mentions that he has chest pain he gets sent to the hospital for evaluation. Troponinx 3 negative. EKG did not show acute ST segment changes. He started complaining of intermittent chest pains and feeling hot and cold that has been going on for several months. I was asked to evaluate the patient and assist in further management. Review of Systems Const: Denies: fever(s), chills, change in appetite or change in weight ENMT: Reports: throat pain (mild, described as a burning sensation, bad taste in back of throat) and nasal congestion Card: Reports: chest pain, edema, dyspnea on exertion and orthopnea; Denies: palpitations Resp: Denies: dyspnea, productive cough or non-productive cough GI: Reports: abdominal pain, nausea, heartburn, early satiety and bloating; Denies: vomiting, hematochezia or melena : Denies: difficulty urinating or hematuria Musc: Reports: back pain (chronic) Skin/Breast: Denies: rash or sores Neuro: Denies: numbness in extremities, weakness in extremities or difficulty walking Psych: Denies: anxiety or depression Endo: Reports: tired all the time Alejandro/Lymph: Denies: easy bruising or easy bleeding Meds/Allergies Home Medications and Allergies Home Medications Medication Instructions Recorded Confirmed Last Taken Type aspirin 81 mg tablet,delayed 81 mg PO DAILY 01/13/20 09/25/21 09/25/21 History release atorvastatin 80 mg tablet 80 mg PO DAILY 01/13/20 09/25/21 09/25/21 History clopidogrel 75 mg tablet 75 mg PO DAILY 01/13/20 09/25/21 09/25/21 History gabapentin 300 mg capsule 300 mg PO TID 01/13/20 09/25/21 09/25/21 History metformin 1,000 mg tablet 1,000 mg PO BID 01/13/20 09/25/21 09/25/21 History metoprolol succinate 25 mg 12.5 mg PO DAILY 01/13/20 09/25/21 09/25/21 History tablet,extended release 24 hr pantoprazole 20 mg tablet,delayed 20 mg PO DAILY 01/13/20 09/25/21 Unknown History release trazodone 100 mg tablet 100 mg PO BEDTIME 01/13/20 09/27/21 09/24/21 History albuterol sulfate 90 mcg/actuation 2 puff INHALATION Q6H PRN #8.5 gm 07/12/20 09/25/21 09/24/21 Rx aerosol inhaler fluticasone propionate 50 1 spray INTRANASAL BID #18.2 ml 05/31/21 09/25/21 Unknown Rx mcg/actuation nasal spray,suspension loratadine 10 mg tablet 10 mg PO DAILY #60 tab 05/31/21 09/25/21 09/25/21 Rx budesonide-formoterol HFA 160 2 inh INHALATION BID #10.2 g 06/06/21 09/25/21 Unknown Rx mcg-4.5 mcg/actuation aerosol inhaler hydrocortisone 10 mg tablet 10 mg PO TID 09/25/21 09/25/21 09/25/21 History insulin glargine 42 unit SUBCUT BID 09/26/21 09/26/21 09/25/21 History insulin lispro [Humalog U-100 14 unit SUBCUT TIDWM 09/26/21 09/26/21 09/25/21 History Insulin] isosorbide mononitrate 60 mg PO DAILY 09/27/21 09/27/21 Unknown History Allergies Allergy/AdvReac Type Severity Reaction Status Date / Time prednisone AdvReac agitation, Verified 09/25/21 16:39 vomiting Current Medications Current Medications Generic Name Dose Route Start Last Admin Trade Name Freq PRN Reason Stop Dose Admin Acetaminophen 650 mg 09/25/21 22:03 09/26/21 15:33 Acetaminophen 325 Mg Tablet PO 650 mg Q6H PRN Administration Mild/Mod Pain Or Temp >/= 101 Albuterol/Ipratropium 3 ml 09/25/21 22:11 09/26/21 21:26 Ipratropium-Albuterol 3 Ml Neb INHALATION 3 ml Q6H PRN Administration SHORTNESS OF BREATH Aspirin 81 mg 09/25/21 22:15 09/27/21 09:31 Aspirin 81 Mg Ec Tablet PO 81 mg DAILY MARJORIE Administration Atorvastatin Calcium 80 mg 09/25/21 22:15 09/26/21 21:51 Atorvastatin 40 Mg Tablet PO 80 mg BEDTIME MARJORIE Administration Azithromycin 500 mg 09/27/21 09:00 09/27/21 09:31 Azithromycin 250 Mg Tablet PO 500 mg DAILY MARJORIE Administration Protocol Budesonide 0.5 mg 09/26/21 08:00 09/27/21 07:25 Budesonide 0.5 Mg/2 Ml Neb INHALATION 0.5 mg BID.RESPIRATORY MARJORIE Administration Clopidogrel Bisulfate 75 mg 09/26/21 09:00 09/27/21 09:31 Clopidogrel 75 Mg Tablet PO 75 mg DAILY MARJORIE Administration Docusate Sodium 100 mg 09/26/21 09:00 09/27/21 09:39 Docusate Sodium 100 Mg Capsule PO Not Given BID MARJORIE Fluticasone Propionate 1 spray 09/26/21 09:00 09/27/21 09:37 Fluticasone Nasal Benld 16gm Btl NASAL 1 spray BID MARJORIE Administration Insulin Glargine 30 unit 09/25/21 22:15 09/27/21 09:32 Insulin Glargine 100 Units/1 Ml SUBCUT 30 unit BID@ MARJORIE Administration Insulin Human Lispro 0 unit 09/26/21 21:00 09/26/21 21:53 Insulin Lispro 100 Unit/1 Ml SUBCUT 7 unit BEDTIME MARJORIE Administration Protocol Insulin Human Lispro 0 unit 09/26/21 08:00 09/27/21 09:31 Insulin Lispro 100 Unit/1 Ml SUBCUT 14 unit TIDWM MARJORIE Administration Protocol Lactulose 20 gm 09/26/21 14:00 09/27/21 01:49 Lactulose Oral Liq 20 Gm/30 Ml Udc PO Not Given Q12H MARJORIE Methylprednisolone Sodium Succinate 40 mg 09/26/21 15:00 09/27/21 04:15 Methylprednisolone Sod Succ 40 Mg/Ml Inj IVP 40 mg Q12H MARJORIE Administration Metoprolol Tartrate 25 mg 09/25/21 22:15 09/27/21 09:31 Metoprolol Tartrate 25 Mg Tablet PO 25 mg BID@0900,2100 MARJORIE Administration Ondansetron HCl 4 mg 09/25/21 22:03 09/25/21 23:29 Ondansetron 2 Mg/Ml Sdv 2 Ml IVP 4 mg Q8H PRN Administration vomiting, or N/V if npo Pantoprazole Sodium 40 mg 09/26/21 09:00 09/27/21 09:[address] 40 Mg Tablet PO 40 mg BID MARJORIE Administration Sucralfate 1 gm 09/26/21 17:00 09/27/21 06:48 Sucralfate 1 Gm Tablet PO 1 gm AC&BEDTIME MARJORIE Administration PFSH Acute PFSH: Medical History Benign prostate hyperplasia CAD (coronary artery disease) Chronic obstructive pulmonary disease Diabetes mellitus, type II, insulin dependent Fatty liver GERD (gastroesophageal reflux disease) Hyperlipidemia Hypertension Kidney stones Sleep apnea Surgical History History of coronary artery stent placement reports 6-7 stents, done at [facility] History of shoulder surgery as a child History of urethral stent Family History Father CAD (coronary artery disease) Lung cancer Diabetes Social History Smoking and tobacco status: former smoker Alcohol intake: former Former alcohol use details: quit ~ 16 years ago, former heavy drinker Substance/Drug Use: never Household members: spouse Marital status: service: Yes Vitals/I&O/Wt Last Vital Signs Temp 98.4 F 09/27/21 11:21 Pulse 55 L 09/27/21 11:21 Resp 16 09/27/21 11:21 BP 142/72 09/27/21 11:21 Pulse Ox 95 09/27/21 11:21 09/26/21 09/27/21 09/27/21 22:59 06:59 14:59 Intake Total 960 / 1200 480 / 1680 Output Total 2450 / 2450 200 / 2650 Balance -1490 / -1250 280 / -970 Weight last 48 hrs Weight 198 lb 11.2 oz Weight 202 lb A&P Assessment and plan (1) Chest pain: Pleurtic chest pain, EKG with mild ST segment elevation in inferior leads and anterior leads. Q wave in inferior leads. -repeat troponin x 3 negative. -ProBNP normal. ESR 13 and CRP normal -home imdur was started and pain has improved -I have requested for record. I will watch his symptoms closely and depending on how he does we will decide on cath tomorrow/stress test on Wednesday. -May continue with ACS protocol in interim. Status: Acute Qualifiers: Chest pain type: precordial pain Qualified Code(s): R07.2 - Precordial pain (2) CAD (coronary artery disease): Status: Chronic Qualifiers: Coronary Disease-Associated Artery/Lesion type: [place] artery [place] vs. transplanted heart: [place] heart Associated angina: unspecified whether angina present Qualified Code(s): I25.10 - Atherosclerotic heart disease of na tive coronary artery without angina pectoris (3) Hypertension: Status: Chronic Qualifiers: Hypertension type: primary hypertension Qualified Code(s): I10 - Essential (primary) hypertension (4) Diabetes mellitus, type II, insulin dependent: Status: Chronic (5) GERD (gastroesophageal reflux disease): Status: Chronic Qualifiers: Esophagitis presence: esophagitis presence not specified Qualified Code(s): K21.9 - Gastro-esophageal reflux disease without esophagitis Additional A&P Information Mixed hyperlipidemia Triglyceridemia Hyponatremia Leucocytosis Diverticulosis Thank you for allowing me to participate in patient's care. Please feel free to call with questions or concerns Consult Attestations Time Spent in Patient Care: 16 - 35 minutes (>than 50% of time spent in counselling and/or direct pt care on unit) . Coding Level of Care Code Acute Poultry Cutter for Chg Fwd Diagnoses Chest pain R07.2 Chest pain type: precordial pain CAD (coronary artery disease) I25.10 Coronary Disease-Associated Artery/Lesion type: [place] artery [place] vs. transplanted heart: [place] heart Associated angina: unspecified whether angina present Hypertension I10 Hypertension type: primary hypertension Diabetes mellitus, type II, insulin dependent E11.9; Z79.4 GERD (gastroesophageal reflux disease) K21.9 Esophagitis presence: esophagitis presence not specified
[2021-09-27 11:39] LABS: Platelet Count 306 10^3/cmm (130-400)
[2021-09-27] MEDS: isosorbide mononitrate ER 30 mg Tablet 15 MG PO ×2 (11:46→23:30)
[2021-09-27 11:48] LABS: Glucose Point of Care 460 mg/dL (70-110)
[2021-09-27 11:49] LABS: Partial Thromboplastin Time 25.4 SECONDS (23.9-36.7)
[2021-09-27 11:56] LABS: Troponin 5 2HR 9.34 ng/L (0-15)
[2021-09-27 12:02] LABS: Troponin 5 2HR Delta -0.66 ABS# (0-10)
[2021-09-27 12:48] LABS: Erythrocyte Sedimentation Rate 13 mm/hr (0-10)
[2021-09-27 13:02] LABS: C Reactive Protein 3.5 mg/L (0.0-4.9); NT Pro B Type Natriuretic Pept 46 pg/mL (0-125)
--- NOTE | 2021-09-27 13:11 | P.PN_ITS ---
Subjective Subjective: Interval history: Seen this morning. He stated that the GI cocktail given to him yesterday did help with the epigastric pain. However it has been intermittent. Today he tells me that has been going on for few weeks. He does not feel like his WI from the past. At that time he also had pain going to the jaw which is not happening at this point. Today he had some belching which he no longer has. This morning however when he was being seen he was also diaphoretic and did not feel well overall. He also stated he was a little stressed out and anxious as well. Shortness of breath has improved since addition of steroids and azithromycin yesterday. He says he does have baseline COPD. EKG was obtained and discussed with cardiology. He was started on a heparin drip and Nitropaste. He was also given Imdur 15 mg x 1. He will be changed to n.p.o. at this time in case of any cardiac intervention sent stress test cannot be done till Wednesday. Patient does have risk factors with history of 7 stents in the past. Vitals/I&O/Wt Last Vital Signs Temp 98.4 F 09/27/21 11:21 Pulse 55 L 09/27/21 11:21 Resp 16 09/27/21 11:21 BP 142/72 09/27/21 11:21 Pulse Ox 95 09/27/21 11:21 09/26/21 09/27/21 09/27/21 22:59 06:59 14:59 Intake Total 960 / 1200 480 / 1680 Output Total 2450 / 2450 200 / 2650 Balance -1490 / -1250 280 / -970 Weight last 48 hrs Weight 90.129 kg Weight 91.626 kg Physical Exam Narrative: EXAM NARRATIVE: General: Alert oriented x3, patient seen laying in bed appearing diaphoretic and uncomfortable due to epigastric pain at this time. However no other acute distress. He does appear somewhat uncomfortable. HEENT: Normocephalic, atraumatic, EOMI, breathing normally, normal respiratory effort no acute distress. Cardio: Regular rate rhythm, normal S1-S2, no murmurs rubs gallops, Respiratory: Good bilateral air entry, no wheezes or rhonchi appreciated today. Yesterday he did have a little bit of diminished breath sounds but today lungs are much clear. GI: Abdomen soft, mildly tender to palpation at epigastric region, nondistended, bowel sounds + Behavior: Appropriate and cooperative Extremities: Pulses 2+, no edema, no cyanosis. Patient is definitely sweaty when touched today. Data : 09/27/21 11:29 09/27/21 05:10 A&P Assessment and plan (1) Epigastric pain: Status: Acute (2) GERD (gastroesophageal reflux disease): Status: Chronic (3) Hypertension: Status: Chronic Qualifiers: Hypertension type: primary hypertension Qualified Code(s): I10 - Essential (primary) hypertension (4) Diabetes mellitus, type II, insulin dependent: Status: Chronic (5) Hyperlipidemia: Status: Chronic (6) Chronic obstructive pulmonary disease: Status: Chronic (7) CAD (coronary artery disease): Status: Chronic Qualifiers: Coronary Disease-Associated Artery/Lesion type: [place] artery [place] vs. transplanted heart: [place] heart Associated angina: unspecified whether angina present Qualified Code(s): I25.10 - Atherosclerotic heart disease of [place] coronary artery without angina pectoris Additional A&P Information #Epigastric pain/unstable angina #GERD #Acute pancreatitis?ruled out by imaging and amylase lipase #History of coronary disease status post stents #Baseline COPD with possible exacerbation #Diabetes mellitus type 2 #Hypertension #Constipation ? Patient's chest pain and diaphoresis today are a little different presentation compared to yesterday. He does have epigastric pain today and did feel better with GI cocktail yesterday but today also has diaphoresis. H. pylori stool antigen is pending. Patient does have risk factors for coronary artery disease and does have 7 stents from prior. There are some ST changes on his EKG in inferior leads but does not seem like an acute WI at this time. He will be started on heparin drip for unstable angina. Cardiology consulted. We will change him to n.p.o. status. Originally stress test was scheduled for Wednesday but he may need to go for cath sooner as per discussion with research group director. -Triglycerides are elevated at 700. Patient is already on atorvastatin 80 mg daily. I will defer to his primary care physician to start him on a fenofibrate. ? His cardiac records from [facility] have been requested and not here yet. ?Continue Protonix and sucralfate. -Continue heparin drip, aspirin, Plavix, metoprolol, Imdur. Will await further recommendations from cardiology. -Continue prednisone 40 daily and azithromycin for COPD exacerbation. Full code DVT prophylaxis on heparin drip now. Attestations Medical Necessity Statement*: Greater than 24 to 48-hour stay for continued management of unstable angina/epigastric pain. Patient will possibly require cath. Coding Level of Care Code Acute Strap Maker for g Fwd Diagnoses Epigastric pain R10.13 GERD (gastroesophageal reflux disease) K21.9 Hypertension I10 Hypertension type: primary hypertension Diabetes mellitus, type II, insulin dependent E11.9; Z79.4 Hyperlipidemia E78.5 Chronic obstructive pulmonary disease J44.9 CAD (coronary artery disease) I25.10 Coronary Disease-Associated Artery/Lesion type: [place] artery [place] vs. transplanted heart: [place] heart Associated angina: unspecified whether angina present
--- NOTE | 2021-09-27 15:00 | ECG_ITS ---
[facility] Test Date: 2021-09-27 Pat Name: Kumar Whelan Department: Room: 250 Gender: Male Psychology Technician: : 1960 Requested By: Nova Irby Order Number: [id number] Chad MD: Nova Irby M.D. Measurements Intervals [place] Rate: 58 P: 24 GA: 186 QRS: 10 QRSD: 105 T: 60 QT: 390 QTc: 385 Interpretive Statements SINUS BRADYCARDIA ST ELEVATION, CONSIDER INFERIOR INJURY [MARKED ST ELEVATION W/O NORMALLY INFLECTED T WAVE IN II/aVF] Compared to ECG 09/27/2021 11:10:50 ST (T wave) deviation now present Sinus arrhythmia no longer present Myocardial infarct finding still present Electronically Signed On 09-28-2021 8:29:19 PROCESSING LEAD by Nova Irby M.D. [id number]
--- NOTE | 2021-09-27 15:07 | ECG_ITS ---
[facility] Test Date: 2021-09-27 Pat Name: Kumar Whelan Department: Room: 250 Gender: Male Manager Progressive Care: : 1960 Requested By: Freya Lezama Order Number: [id number] Chad MD: Nova Irby M.D. Measurements Intervals [place] Rate: 53 P: 7 NE: 185 QRS: 12 QRSD: 104 T: 38 QT: 406 QTc: 383 Interpretive Statements SINUS BRADYCARDIA ST ELEVATION, CONSIDER INFERIOR INJURY Compared to ECG 09/26/2021 02:37:54 No significant changes Electronically Signed On 09-28-2021 8:32:51 DISPENSING OPTICIAN by Nova Irby M.D. [email or web address] [id number]
[2021-09-27] MEDS: heparin drip 25,000 UNIT/500 ML PREMIX 21 UNIT IV (15:14)
[2021-09-27] MEDS: heparin 5,000 unit/mL INJ 1 mL IV ×2 (15:14→22:42)
[2021-09-27] MEDS: sodium chloride 0.9% 500 ML IV (16:31)
[2021-09-27 17:26] LABS: Glucose Point of Care 141 mg/dL (70-110)
[2021-09-27] MEDS: docusate sodium 100 mg Capsule PO (18:50)
[2021-09-27 21:21] LABS: Partial Thromboplastin Time 51.8 SECONDS (23.9-36.7)
[2021-09-27 22:10] LABS: Glucose Point of Care 393 mg/dL (70-110)
[2021-09-27] MEDS: atorvastatin 40 mg Tablet 80 MG PO (22:18)
[2021-09-27] MEDS: acetaminophen 325 mg Tablet 650 MG PO (22:26)
[2021-09-27 22:41] LABS: Add Urine Microscopic? NO; Charge for UA Resulting for Rev
[2021-09-27] MEDS: heparin drip 25,000 UNIT/500 ML PREMIX 23 UNIT IV (22:44)
[2021-09-27 23:01] LABS: Bilirubin Urine Neg (Negative); Blood Urine Neg (Negative); Glucose Urine UA 4+ (Normal); Ketones Urine 1+ (Negative); Leukocyte Esterase Urine Negative (Negative); Nitrate Urine Negative (Negative); Protein Urine Neg (Negative); Specific Gravity, Urine 1.005 (1.005-1.030); Urine Appearance Clear (CLEAR); Urine Color Yellow (Yellow); Urobilinogen Urine Norm (Negative); pH Urine 5 (5-7)
[2021-09-27 23:21] LABS: Urine Random Sodium 46 mmol/L
[2021-09-27] MEDS: trazodone 100 mg Tablet PO (23:30)
[2021-09-28] VITALS (13 sets, daily range): BP systolic 110–137; BP diastolic 63–77; PULSE 59–97; RESP 15–17; TEMP 36.3–37.2; O2SAT 92–97
--- NOTE | 2021-09-28 00:34 | PC.NURSE ---
1999 Lying in bed. given alonzo crackers and sprite per pt request. Explained NPO status at [place]. Voices understanding.
--- NOTE | 2021-09-28 00:36 | PC.NURSE ---
2229 Pt reports he usually takes trazadone 100mg po at HS at home. Says he hasn't slept in 2 days because he hasn't had trazadone. Notified Dr. Stallworth. New order recieved and given.
--- NOTE | 2021-09-28 00:37 | PC.NURSE ---
2330 Peanut butter and alonzo crackers and sprite given per pt request. Fan placed at bedside for reports of being hot.
--- NOTE | 2021-09-28 02:05 | PC.NURSE ---
0200Resting in bed. Resp E/U. No distress.
--- NOTE | 2021-09-28 03:15 | PC.NURSE ---
0300 Resting in bed. Easily awakens for med as scheduled. IV infusing Heparin 23u per protocol.
[2021-09-28 04:27] LABS: Basophils % 0.1 %; Hematocrit 41.1 % (42.0-52.0); Hemoglobin 13.8 g/dL (11.7-16.6); Lymphocytes # 2.3 10^3/uL (0.8-4.8); Lymphocytes % 16.2 %; Mean Corpuscular HGB Conc 33.6 g/dL (30.0-36.0); Mean Corpuscular Hemoglobin 27.2 pg (28.0-34.0); Mean Corpuscular Volume 80.9 fl (80-94); Mean Platelet Volume 9.7 fL (7.4-10.4); Monocytes # 0.9 10^3/uL (0.2-0.9); Monocytes % 6.5 %; Neutrophils # 11.03 10^3/uL (1.8-7.7); Neutrophils % 76.8 %; Nucleated Red Blood Cells % 0 %; Platelet Count 294 10^3/cmm (130-400); Red Blood Count 5.08 10^6/uL (4.1-5.3); Red Cell Distribution Width 13.5 % (12.1-15.1); White Blood Count 14.4 10^3/uL (4.0-10.0)
[2021-09-28 04:43] LABS: Blood Urea Nitrogen 22 mg/dL (8-23); Calcium 8.9 mg/dL (8.5-10.5); Carbon Dioxide 21 mmol/L (22-29); Chloride 99 mmol/L (98-107); Creatinine Clr Calc Pharmacy 103.2383; Glomerular Filtration Rate 98.6 mL/min (90-130); Glucose 302 mg/dL (65-115); Osmolality Calculated 291 mOsm/kg (285-295); Sodium 133 mmol/L (136-145)
--- NOTE | 2021-09-28 04:56 | PC.NURSE ---
0430 lab at bedside for PTT draw.
[2021-09-28] MEDS: sucralfate 1 gm Tablet PO ×4 (06:06→20:58)
--- NOTE | 2021-09-28 06:17 | PC.NURSE ---
0617 called lab to verify they recieved order for PTT as there are no results yet. Lab staff reports they do have order and has been drawn.
[2021-09-28 06:36] LABS: Partial Thromboplastin Time 103.3 SECONDS (23.9-36.7)
[2021-09-28 06:45] LABS: Glucose Point of Care 304 mg/dL (70-110)
[2021-09-28] MEDS: budesonide 0.5 mg/2 mL Neb INHALATION ×2 (07:46→20:20)
--- NOTE | 2021-09-28 07:51 | ECG_ITS ---
[facility] Test Date: 2021-09-28 Pat Name: Kumar Whelan Department: Room: 250 Gender: Male Supervisor Cigar Processing: : 1960 Requested By: Nova Irby Order Number: [id number] Chad MD: Nova Irby M.D. Measurements Intervals [place] Rate: 57 P: 24 FL: 193 QRS: 1 QRSD: 104 T: 39 QT: 403 QTc: 395 Interpretive Statements SINUS BRADYCARDIA POSSIBLE INFERIOR MYOCARDIAL INFARCTION , PROBABLY OLD [30 ms Q WAVE IN II/aVF] Compared to ECG 09/27/2021 14:48:15 ST (T wave) deviation no longer present Myocardial infarct finding still present Electronically Signed On 09-30-2021 5:22:15 STREETCAR DISPATCHER by Nova Irby M.D. [id number]
[2021-09-28] MEDS: insulin glargine 100 units/1 mL 30 UNIT SUBCUT ×2 (08:02→21:37)
[2021-09-28] MEDS: azithromycin 250 mg Tablet 500 MG PO (08:02)
[2021-09-28] MEDS: insulin lispro 100 unit/1 mL SUBCUT ×4 (08:02→21:37)
[2021-09-28] MEDS: metoprolol succinate ER (24 HR) 25 mg Tablet PO (08:04)
[2021-09-28] MEDS: clopidogrel 75 mg Tablet PO (08:04)
[2021-09-28] MEDS: fluticasone nasal spray 16gm Btl 1 SPRAY NASAL ×2 (08:04→17:18)
[2021-09-28] MEDS: aspirin 81 mg EC Tablet PO (08:04)
[2021-09-28] MEDS: pantoprazole DR 40 mg Tablet PO ×2 (08:04→17:19)
[2021-09-28] MEDS: isosorbide mononitrate ER 30 mg Tablet PO (08:04)
[2021-09-28] MEDS: docusate sodium 100 mg Capsule PO ×2 (08:04→17:19)
--- NOTE | 2021-09-28 08:36 | P.PN_ITS ---
Subjective Subjective: Interval history: Seen this AM. He feels well. CP is much better. Still on heparin drip Vitals/I&O/Wt Last Vital Signs Temp 98.0 F 09/28/21 08:17 Pulse 97 09/28/21 08:17 Resp 16 09/28/21 08:17 BP 110/63 09/28/21 08:17 Pulse Ox 92 09/28/21 08:17 09/27/21 09/28/21 09/28/21 22:59 06:59 14:59 Intake Total 777.5 / 777.5 Output Total 1050 / 1050 1400 / 2450 300 / 300 Balance -272.5 / -272.5 -1400 / -1672.5 -300 / -300 Physical Exam Narrative: EXAM NARRATIVE: General: Alert oriented x3, patient seen sitting up in chair appearing comfortable. HEENT: Normocephalic, atraumatic, EOMI, breathing normally, normal respiratory effort no acute distress. Cardio: Regular rate rhythm, normal S1-S2, no murmurs rubs gallops, Respiratory: Good bilateral air entry, no wheezes or rhonchi appreciated today. GI: Abdomen soft, non tender to palpation, nondistended, bowel sounds + Behavior: Appropriate and cooperative Extremities: Pulses 2+, no edema, no cyanosis. Data : 09/28/21 04:05 09/28/21 04:05 A&P Assessment and plan (1) Epigastric pain: Status: Acute (2) GERD (gastroesophageal reflux disease): Status: Chronic Qualifiers: Esophagitis presence: esophagitis presence not specified Qualified Code(s): K21.9 - Gastro-esophageal reflux disease without esophagitis (3) Hypertension: Status: Chronic Qualifiers: Hypertension type: primary hypertension Qualified Code(s): I10 - Essential (primary) hypertension (4) Diabetes mellitus, type II, insulin dependent: Status: Chronic (5) Hyperlipidemia: Status: Chronic (6) Chronic obstructive pulmonary disease: Status: Chronic (7) CAD (coronary artery disease): Status: Chronic Qualifiers: Coronary Disease-Associated Artery/Lesion type: [place] artery [place] vs. transplanted heart: [place] heart Associated angina: unspecified whether angina present Qualified Code(s): I25.10 - Atherosclerotic heart disease of [place] coronary artery without angina pectoris Additional A&P Information #Epigastric pain/unstable angina #GERD #Acute pancreatitis?ruled out by imaging and amylase lipase #History of coronary disease status post stents #Baseline COPD with possible exacerbation #Diabetes mellitus type 2 #Hypertension #Constipation ? NO longer having CP. Will go for stress test in AM. Continue UA protocol with heparin drip. Cardiology on board. -Triglycerides are elevated at 700. Patient is already on atorvastatin 80 mg daily. I will defer to his primary care physician to start him on a fenofibrate. ? His cardiac records from [facility] have been requested and not here yet. ?Continue Protonix and sucralfate. -Continue heparin drip, aspirin, Plavix, metoprolol, Imdur. -Continue prednisone 40 daily and azithromycin for COPD exacerbation for total of 5 days. Full code DVT prophylaxis on heparin drip now. Attestations Medical Necessity Statement*: Stress test in AM. > 24 hr stay Coding Level of Care Code Acute Punch Press Operator for Chg Fwd Diagnoses Epigastric pain R10.13 GERD (gastroesophageal reflux disease) K21.9 Esophagitis presence: esophagitis presence not specified Hypertension I10 Hypertension type: primary hypertension Diabetes mellitus, type II, insulin dependent E11.9; Z79.4 Hyperlipidemia E78.5 Chronic obstructive pulmonary disease J44.9 CAD (coronary artery disease) I25.10 Coronary Disease-Associated Artery/Lesion type: [place] artery [place] vs. transplanted heart: [place] heart Associated angina: unspecified whether angina present
--- NOTE | 2021-09-28 08:50 | P.PN_ITS ---
Subjective Subjective: Interval history: Patient feels better and denies any chest pain. SOB has improved. He feels better this morning Medications: Reviewed: Yes Medication Review Details: Current Medications Acetaminophen (Acetaminophen 325 Mg Tablet) 650 mg PO Q6H PRN PRN Reason: Mild/Mod Pain Or Temp >/= 101 Last Admin: 09/27/21 22:26 Dose: 650 mg Documented by: Albuterol/Ipratropium (Ipratropium-Albuterol 3 Ml Neb) 3 ml INHALATION Q6H PRN PRN Reason: SHORTNESS OF BREATH Last Admin: 09/26/21 21:26 Dose: 3 ml Documented by: Aspirin (Aspirin 81 Mg Ec Tablet) 81 mg PO DAILY [facility] Last Admin: 09/28/21 08:04 Dose: 81 mg Documented by: Atorvastatin Calcium (Atorvastatin 40 Mg Tablet) 80 mg PO BEDTIME [facility] Last Admin: 09/27/21 22:18 Dose: 80 mg Documented by: Azithromycin (Azithromycin 250 Mg Tablet) 500 mg PO DAILY [facility]; Protocol Last Admin: 09/28/21 08:02 Dose: 500 mg Documented by: Bisacodyl (Bisacodyl 5 Mg Tablet) 10 mg PO DAILY PRN; Protocol PRN Reason: Constipation (see protocol) Budesonide (Budesonide 0.5 Mg/2 Ml Neb) 0.5 mg INHALATION BID.RESPIRATORY [facility] Last Admin: 09/28/21 07:46 Dose: 0.5 mg Documented by: Calcium Carbonate (Calcium Carbonate 500 Mg Chew Tablet) 1,000 mg PO Q4H PRN PRN Reason: DYSPEPSI Clopidogrel Bisulfate (Clopidogrel 75 Mg Tablet) 75 mg PO DAILY [facility] Last Admin: 09/28/21 08:04 Dose: 75 mg Documented by: Dextrose (Dextrose 50% Syringe 50 Ml) 25 ml IVP ONCE PRN; Protocol PRN Reason: hypoglycemia protocol Dextrose (Dextrose 50% Syringe 50 Ml) 50 ml IVP PRN PRN; Protocol PRN Reason: hypoglycemia protocol Docusate Sodium (Docusate Sodium 100 Mg Capsule) 100 mg PO BID [facility] Last Admin: 09/28/21 08:04 Dose: 100 mg Documented by: Fluticasone Propionate (Fluticasone Nasal [place] 16gm Btl) 1 spray NASAL BID [facility] Last Admin: 09/28/21 08:04 Dose: 1 spray Documented by: Glucagon (Glucagon 1 Mg/Ml Inj 1 Ml) 1 mg IM ONCE PRN; Protocol PRN Reason: Adult Acute Hypoglycemia Prot. Heparin Sodium (Porcine) (Heparin 5,000 Unit/Ml Inj 1 Ml) 0 unit IV PRN PRN; Protocol PRN Reason: Heparin weight-base protocol Last Admin: 09/27/21 22:42 Dose: 1,800 unit Documented by: Dextrose (D5w) 500 mls @ 100 mls/hr IV ONCE PRN; Protocol PRN Reason: Adult Acute Hypoglycemia Prot Heparin Sodium/Sodium Chloride (Heparin Drip) 25,000 unit in 500 mls @ 0 mls/hr IV .Q0M [facility]; Protocol Last Admin: 09/27/21 22:44 Dose: 12.76 unit/kg/hr, 23 mls/hr Documented by: Insulin Glargine (Insulin Glargine 100 Units/1 Ml) 30 unit SUBCUT BID@ [facility] Last Admin: 09/28/21 08:02 Dose: 30 unit Documented by: Insulin Human Lispro (Insulin Lispro 100 Unit/1 Ml) 0 unit SUBCUT BEDTIME [facility]; Protocol Last Admin: 09/27/21 22:18 Dose: 8 unit Documented by: Insulin Human Lispro (Insulin Lispro 100 Unit/1 Ml) 0 unit SUBCUT TIDWM [facility]; Protocol Last Admin: 09/28/21 08:02 Dose: 14 unit Documented by: Isosorbide Mononitrate (Isosorbide Mononitrate Er 30 Mg Tablet) 30 mg PO DAILY [facility] Last Admin: 09/28/21 08:04 Dose: 30 mg Documented by: Lactulose (Lactulose Oral Liq 20 Gm/30 Ml Udc) 20 gm PO Q12H [facility] Last Admin: 09/28/21 02:06 Dose: Not Given Documented by: Methylprednisolone Sodium Succinate (Methylprednisolone Sod Succ 40 Mg/Ml Inj) 40 mg IVP Q12H [facility] Last Admin: 09/28/21 02:55 Dose: 40 mg Documented by: Metoprolol Succinate (Metoprolol Succinate Er (24 Hr) 25 Mg Tablet) 25 mg PO DAILY [facility] Last Admin: 09/28/21 08:04 Dose: 25 mg Documented by: Nitroglycerin (Nitroglycerin 0.4 Mg Sublingual Tablet) 0.4 mg SUBLINGUAL Q5M PRN PRN Reason: CHEST PAIN Ondansetron HCl (Ondansetron 2 Mg/Ml Sdv 2 Ml) 4 mg IVP Q8H PRN PRN Reason: vomiting, or N/V if npo Last Admin: 09/25/21 23:29 Dose: 4 mg Documented by: Ondansetron HCl (Ondansetron 2 Mg/Ml Sdv 2 Ml) 4 mg IVP Q2M PRN PRN Reason: NAUSEA Pantoprazole Sodium (Pantoprazole Dr 40 Mg Tablet) 40 mg PO BID [facility] Last Admin: 09/28/21 08:04 Dose: 40 mg Documented by: Regadenoson (Regadenoson 0.4 Mg/5 Ml Syringe) 0.4 mg IVP ONCE PRN PRN Reason: Lexiscan Stress Test Sucralfate (Sucralfate 1 Gm Tablet) 1 gm PO AC&BEDTIME [facility] Last Admin: 09/28/21 06:06 Dose: 1 gm Documented by: Trazodone HCl (Trazodone 100 Mg Tablet) 100 mg PO BEDTIME [facility] Last Admin: 09/27/21 23:30 Dose: 100 mg Documented by: Vitals/I&O/Wt Last Vital Signs Temp 98.0 F 09/28/21 08:17 Pulse 97 09/28/21 08:17 Resp 16 09/28/21 08:17 BP 110/63 09/28/21 08:17 Pulse Ox 92 09/28/21 08:17 09/27/21 09/28/21 09/28/21 22:59 06:59 14:59 Intake Total 777.5 / 777.5 Output Total 1050 / 1050 1400 / 2450 300 / 300 Balance -272.5 / -272.5 -1400 / -1672.5 -300 / -300 Physical Exam Narrative: EXAM NARRATIVE: GENERAL: Averagely built and averagely nourished in no acute distress HEENT: Pupils equal round reactive to light. No pallor or icterus. NECK: No JVD. No carotid bruit. CARDIOVASCULAR SYSTEM: S1-S2 regular. No S3 or S4 present. No murmur rubs or gallops. RESPIRATORY SYSTEM: Chest clear to auscultation. No wheezes rhonchi or rubs heard. No use of accessory muscles. ABDOMEN: Soft, nontender and nondistended. Normal bowel sounds present. EXTREMITIES: No cyanosis or clubbing. No edema. No signs of chronic venous insufficiency. POLISHING WHEEL SETTER: Patient is alert oriented ?3. No focal neurological deficits. Data : 09/28/21 04:05 09/28/21 04:05 A&P Assessment and plan (1) Chest pain: Pleurtic chest pain, EKG with mild ST segment elevation in inferior leads. Q wave in inferior leads. -No changes on follow-up EKGs yesterday and this morning. -Chest pain has improved. Echocardiogram with normal LV function and no regional wall motion abnormalities -repeat troponin x 3 (2 sets) negative. -ProBNP normal. ESR 13 and CRP normal -home imdur was started and pain has improved -I have requested for record. -May continue with ACS protocol in interim. -I will plan for stress test for the patient on Wednesday Status: Acute Qualifiers: Chest pain type: precordial pain Qualified Code(s): R07.2 - Precordial pain (2) CAD (coronary artery disease): CAD with history of stents -No records obtained so far Status: Chronic Qualifiers: Associated angina: unspecified whether angina present Coronary Disease- Associated Artery/Lesion type: [place] artery [place] vs. transplanted heart: [place] heart Qualified Code(s): I25.10 - Atherosclerotic heart disease of [place] coronary artery without angina pectoris (3) Hypertension: Mild concentric left ventricular hypertrophy noted on echocardiogram Status: Chronic Qualifiers: Hypertension type: primary hypertension Qualified Code(s): I10 - Essential (primary) hypertension (4) Diabetes mellitus, type II, insulin dependent: Status: Chronic (5) GERD (gastroesophageal reflux disease): Status: Chronic Qualifiers: Esophagitis presence: esophagitis presence not specified Qualified Code(s): K21.9 - Gastro-esophageal reflux disease without esophagitis Additional A&P Information Mixed hyperlipidemia Triglyceridemia Mild to moderate aortic regurgitation Hyponatremia Leucocytosis Diverticulosis Thank you for allowing me to participate in patient's care. Please feel free to call with questions or concerns Attestations Medical Necessity Statement*: Patient needs hospital stay for chest pain and shortness of breath Time Spent in Patient Care: 16 - 35 minutes (>than 50% of time spent in counselling and/or direct pt care on unit) . Coding Level of Care Code Acute Music Education Adjunct Professor for Chg Fwd Diagnoses Chest pain R07.2 Chest pain type: precordial pain CAD (coronary artery disease) I25.10 Associated angina: unspecified whether angina present Coronary Disease-Associated Artery/Lesion type: [place] artery [place] vs. transplanted heart: [place] heart Hypertension I10 Hypertension type: primary hypertension Diabetes mellitus, type II, insulin dependent E11.9; Z79.4 GERD (gastroesophageal reflux disease) K21.9 Esophagitis presence: esophagitis presence not specified
[2021-09-28 11:48] LABS: Glucose Point of Care 223 mg/dL (70-110)
[2021-09-28 13:46] LABS: Partial Thromboplastin Time 78.2 SECONDS (23.9-36.7)
--- NOTE | 2021-09-28 14:09 | PC.NURSE ---
pt PTT came back late, during shift change this AM, Hola TORRES and this nurse went to bedside to titrate heparin gtt. pump was unlocked and infusion titrated down. upon further review this afternoon this nurse saw that the gtt was not titrated down the full amount. pt is still within safe ranges at this time. will continue to monitor.
[2021-09-28] MEDS: heparin drip 25,000 UNIT/500 ML PREMIX 18 UNIT IV (14:37)
[2021-09-28] MEDS: lactulose oral liq 20 gm/30 mL UDC PO (14:39)
[2021-09-28 17:20] LABS: Glucose Point of Care 332 mg/dL (70-110)
[2021-09-28 20:43] LABS: Partial Thromboplastin Time 57.1 SECONDS (23.9-36.7)
[2021-09-28] MEDS: atorvastatin 40 mg Tablet 80 MG PO (20:58)
[2021-09-28] MEDS: trazodone 100 mg Tablet PO (20:58)
[2021-09-28 21:09] LABS: Glucose Point of Care 405 mg/dL (70-110)
--- NOTE | 2021-09-28 22:08 | PC.NURSE ---
2009 PTT 57.1 = no change to heparin rate. Continues to infuse at 18ml/hr via pump. Verified with Donna TORRES and Niesha TORRES (charge).
--- NOTE | 2021-09-28 23:53 | PC.NURSE ---
2030 Pt request peanut butter, alonzo crackers, ice cream and water. All given. Advised of NPO status at [place]. Voices understanding.
--- NOTE | 2021-09-28 23:54 | PC.NURSE ---
2200 Pt awake watching tv. No distress.
--- NOTE | 2021-09-28 23:55 | PC.NURSE ---
7931 Resting in bed on left side. Resp E/U. No distress.
[2021-09-29] VITALS (9 sets, daily range): BP systolic 133–171; BP diastolic 69–92; PULSE 56–79; RESP 16–18; TEMP 36.4–36.7; O2SAT 96–99
[2021-09-29 02:28] LABS: Basophils % 0.1 %; Hematocrit 40.9 % (42.0-52.0); Hemoglobin 13.7 g/dL (11.7-16.6); Lymphocytes # 2.6 10^3/uL (0.8-4.8); Lymphocytes % 19.7 %; Mean Corpuscular HGB Conc 33.5 g/dL (30.0-36.0); Mean Corpuscular Hemoglobin 27.2 pg (28.0-34.0); Mean Corpuscular Volume 81.3 fl (80-94); Mean Platelet Volume 9.6 fL (7.4-10.4); Monocytes # 0.8 10^3/uL (0.2-0.9); Neutrophils # 9.58 10^3/uL (1.8-7.7); Neutrophils % 73.9 %; Nucleated Red Blood Cells % 0 %; Platelet Count 260 10^3/cmm (130-400); Red Blood Count 5.03 10^6/uL (4.1-5.3); Red Cell Distribution Width 13.7 % (12.1-15.1)
[2021-09-29 02:59] LABS: Anion Gap 19.8 (5-19); Blood Urea Nitrogen 20 mg/dL (8-23); Calcium 9.8 mg/dL (8.5-10.5); Carbon Dioxide 20 mmol/L (22-29); Chloride 100 mmol/L (98-107); Glomerular Filtration Rate 137.4 mL/min (90-130); Glucose 251 mg/dL (65-115); Magnesium 1.8 mg/dL (1.7-2.3); Osmolality Calculated 293 mOsm/kg (285-295); Potassium 3.8 mmol/L (3.5-5.1); Sodium 136 mmol/L (136-145)
--- NOTE | 2021-09-29 03:12 | PC.NURSE ---
0310 Called lab to check on PTT status. Not ready yet.
[2021-09-29 03:16] LABS: Partial Thromboplastin Time 70.2 SECONDS (23.9-36.7)
--- NOTE | 2021-09-29 03:35 | PC.NURSE ---
0320 PTT 70.2= no change per Heparin protocol. Cont to infuse at 18ml/hr. Verified by Niesha rm RN.
--- NOTE | 2021-09-29 05:01 | PC.NURSE ---
[address] Tolerates well.
[2021-09-29] MEDS: sucralfate 1 gm Tablet PO ×2 (06:02→11:30)
--- NOTE | 2021-09-29 06:12 | PC.NURSE ---
0605 Pt sitting up in bed watching tv. Denies pain. No distress. Understands having stress test today.
[2021-09-29 06:27] LABS: Partial Thromboplastin Time 76.3 SECONDS (23.9-36.7)
--- NOTE | 2021-09-29 06:34 | PC.NURSE ---
0630 Radiology at bedside.
[2021-09-29 06:44] LABS: Glucose Point of Care 257 mg/dL (70-110)
[2021-09-29] MEDS: ipratropium-albuterol 3 mL Neb INHALATION (08:08)
[2021-09-29] MEDS: budesonide 0.5 mg/2 mL Neb INHALATION (08:08)
--- NOTE | 2021-09-29 08:16 | NMCV_ITS ---
NM lucy perf SPECT r/s* [id number] Kumar Whelan Age: 61 Gender: M : 1960 Exam Date: 09/29/2021 08:16 Ordering Phys: Nova Irby MD ([email or web address]) Technologist: REGINA [place] Exam Location: [facility] Indications: CHEST PAIN, h/o CAD STRESS TEST Please [facility] IMAGE PROTOCOL Rest/Stress 1 Lexiscan Day Radiopharmaceutical Dose (mCi) Administration Site Administered by Rest: Tc-99m 9.3 IV REGINA Steele Sestamibi Stress:Tc-99m 27.9 IV REGINA Steele Sestamibi Rest: 29-Sep-2021 60 Discovery 630 Stress: 29-Sep-2021 30 Discovery 630 0.4mg Lexiscan. Images obtained in supine and prone position. SPECT RESULTS Technical Quality: Excellent Raw Data Analysis: Normal Image Corrections: No attenuation or motion correction applied Summed Stress Score: 4 Summed Rest Score: 1 Summed Difference Score: 4 PERFUSION FINDINGS Small size perfusion abnormality of mild severity and apical lateral wall on rest images with mild reversibility in apical inferior, apical septal, apical and mid inferolateral ramirez on stress images. FUNCTIONAL RESULTS (calculated via Gated SPECT) Stress Image LV EF (%): 64 Stress EDV (mL):112 TID: 0.95 Stress ESV (mL):40 FUNCTIONAL FINDINGS: The left ventricle is normal in size. Transient Ischemia Dilatation of 0.95. There is normal left ventricular systolic function. The left ventricular ejection fraction is normal with a value of 64%. There is possible mild hypokinesis of apical inferior wall. IMPRESSIONS 1. Small size perfusion abnormality of mild severity and apical lateral wall with mild reversibility in apical inferior, apical septal, and apical wall. 2. This is suggestive of old myocardial infarction in left anterior descending artery territory with mild lali-infarct ischemia. 3. The left ventricular ejection fraction is normal with a value of 64%. 4. There is possible mild hypokinesis of apical inferior wall. 5. No prior similar studies to compare. Nova Irby MD (Electronically Signed) Final Date: 29 September 2021 12:15 S
[2021-09-29] MEDS: regadenoson 0.4 Mg/5 ml Syringe IVP (09:14)
[2021-09-29] MEDS: azithromycin 250 mg Tablet 500 MG PO (11:24)
[2021-09-29] MEDS: isosorbide mononitrate ER 30 mg Tablet PO (11:24)
[2021-09-29] MEDS: clopidogrel 75 mg Tablet PO (11:27)
[2021-09-29] MEDS: docusate sodium 100 mg Capsule PO (11:27)
[2021-09-29] MEDS: pantoprazole DR 40 mg Tablet PO (11:27)
[2021-09-29] MEDS: aspirin 81 mg EC Tablet PO (11:27)
[2021-09-29] MEDS: fluticasone nasal spray 16gm Btl 1 SPRAY NASAL (11:28)
[2021-09-29] MEDS: insulin glargine 100 units/1 mL 30 UNIT SUBCUT (11:28)
[2021-09-29 13:04] LABS: Partial Thromboplastin Time 59.9 SECONDS (23.9-36.7)
--- NOTE | 2021-09-29 14:17 | P.DS_ITS ---
Discharge Providers Date of Admission: 09/27/21 10:06 Date of Discharge: September 29, 2021 Attending Provider at Admission: Katelyn Stallworth MD Attending Provider at Discharge: Jac Brown MD Diagnoses at Discharge Discharge Diagnosis (1) Epigastric pain: Status: Acute (2) GERD (gastroesophageal reflux disease): Status: Chronic Qualifiers: Esophagitis presence: esophagitis presence not specified Qualified Code(s): K21.9 - Gastro-esophageal reflux disease without esophagitis (3) Hypertension: Status: Chronic Qualifiers: Hypertension type: primary hypertension Qualified Code(s): I10 - Essential (primary) hypertension (4) Diabetes mellitus, type II, insulin dependent: Status: Chronic (5) Hyperlipidemia: Status: Chronic (6) Chronic obstructive pulmonary disease: Status: Chronic (7) CAD (coronary artery disease): Status: Chronic Qualifiers: Coronary Disease-Associated Artery/Lesion type: [place] artery [place] vs. transplanted heart: [place] heart Associated angina: unspecified whether angina present Qualified Code(s): I25.10 - Atherosclerotic heart disease of [place] coronary artery without angina pectoris Reason for Visit Reason for Visit: SHARP BURNING CHEST PAIN Hospital Course Hospital Course This is a 61-year-old male with a past medical history of CAD status post stenting, COPD, type 2 diabetes mellitus, hypertension, history of GERD, who presents to [facility] due to epigastric discomfort concerning for unstable angina Patient was admitted to [facility] for unstable angina, was admitted managed with aspirin, statin, Plavix, heparin drip, cardiology was consulted, underwent cardiac stress testing 1. Small size perfusion abnormality of mild severity and apical lateral wall with mild reversibility in apical inferior, apical septal, and apical wall. 2. This is suggestive of old myocardial infarction in left anterior descending artery territory with mild lali-infarct ischemia. 3. The left ventricular ejection fraction is normal with a value of 64%. 4. There is possible mild hypokinesis of apical inferior wall. 5. No prior similar studies to compare. Cardiac echocardiogram showed -1. Normal left ventricular size, systolic function and mildly increased wall thickness, with no regional wall motion abnormalities. Left ventricular ejection fraction is estimated at 61 %. Mild concentric left ventricular hypertrophy. Normal diastolic function. 2. Normal right ventricular size and systolic function. 3. [id number] aortic valve regurgitation. 4. No prior similar studies to compare. -He remained chest pain-free on day of discharge, no shortness of breath, ambulating without significant symptomatology -Discharged on his home aspirin, statin, Plavix, metoprolol increased to 25 mg daily, Imdur 30 mg in the morning, 15 mg in the afternoon, with instructions to return to the hospital if you have recurrent chest pain, follow-up with cardiology in a week -For COPD exacerbation, discharged on doxycycline, and prednisone Physical Exam Const: COMMON NORMALS: no acute distress and patient oriented x3 Resp: COMMON NORMALS: normal respiratory effort, No retractions, No use of accessory muscles and clear to auscultation bilaterally AUSCULTATION: clear to auscultation bilaterally Cardio: COMMON NORMALS: regular rate, regular rhythm, S1 normal heart sound present and S2 normal heart sound present RATE: regular rate RHYTHM: regular rhythm HEART SOUNDS: S1 normal heart sound present and S2 normal heart sound present GI: COMMON NORMALS: Normal to inspection, nondistended, normoactive bowel sounds present, Soft to palpation, non-tender and No hepatosplenomegaly present PALPATION: Yes Soft to palpation and Yes No hepatosplenomegaly present Extremity: COMMON NORMALS: no pedal edema Neuro: COMMON NORMALS: patient oriented x3 Psych: COMMON NORMALS: mental status grossly normal Discharge Data Data Completed and Pending: Completed Studies During Hospitalization Category Date Time Status CT abdomen pelvis w con* [id number] Urge nt Cat Scan 09/26/21 08:32 Completed Sestamibi Stress Test Request Routi ne Exams 09/26/21 08:16 Draft XR KUB portable 7 [id number] Routine Exams 09/25/21 22:03 Completed XR chest 1V jose ble [id number] Urgent Exams 09/25/21 18:49 Completed NM lucy perf SPECT r/s* [id number] Routin e Nuc Med 09/29/21 08:16 Completed CV. echo complete * [id number] Routine Ultrasound 09/26/21 22:21 Completed Pending at discharge Category Date Time Status Osmolality Serum Stat Lab 09/27/21 08:20 Received Osmolality Urine Stat Lab 09/27/21 22:33 Received Platelet Count Q2 D Lab 10/01/21 04:00 Ordered Labs from last 24 hours 09/29/21 09/29/21 09/29/21 12:21 06:27 04:12 WBC RBC Hgb Hct MCV MCH MCHC RDW Plt Count MPV Neut % (Auto) Lymph % (Auto) [place] % (Auto) Eos % (Auto) Baso % (Auto) Neut # (Auto) Lymph # (Auto) [place] # (Auto) Eos # (Auto) Baso # (Auto) Nucleated RBC % (a uto) Nucleated RBCs # APTT 59.9 H 76.3 H Sodium Potassium Chloride Carbon Dioxide Anion Gap BUN Creatinine GFR Calculation Glucose POC Glucose 257 H Calculated Osmolal ity Calcium Magnesium Stool H. pylori Ag 09/29/21 09/29/21 09/29/21 02:10 02:10 02:10 WBC 13.0 H RBC 5.03 Hgb 13.7 Hct 40.9 L MCV 81.3 MCH 27.2 L MCHC 33.5 RDW 13.7 Plt Count 260 MPV 9.6 Neut % (Auto) 73.9 Lymph % (Auto) 19.7 [place] % (Auto) 6.0 Eos % (Auto) 0.0 Baso % (Auto) 0.1 Neut # (Auto) 9.58 H Lymph # (Auto) 2.6 [place] # (Auto) 0.8 Eos # (Auto) 0.0 Baso # (Auto) 0.0 Nucleated RBC % (a uto) 0 Nucleated RBCs # 0.0 APTT 70.2 H Sodium 136 Potassium 3.8 Chloride 100 Carbon Dioxide 20 L Anion Gap 19.8 H BUN 20 Creatinine 0.6 L GFR Calculation 137.4 H Glucose 251 H POC Glucose Calculated Osmolal ity 293 Calcium 9.8 Magnesium 1.8 Stool H. pylori Ag 09/28/21 09/28/21 09/28/21 20:59 20:05 16:52 WBC RBC Hgb Hct MCV MCH MCHC RDW Plt Count MPV Neut % (Auto) Lymph % (Auto) [place] % (Auto) Eos % (Auto) Baso % (Auto) Neut # (Auto) Lymph # (Auto) [place] # (Auto) Eos # (Auto) Baso # (Auto) Nucleated RBC % (a uto) Nucleated RBCs # APTT 57.1 H Sodium Potassium Chloride Carbon Dioxide Anion Gap BUN Creatinine GFR Calculation Glucose POC Glucose 405 H 332 H Calculated Osmolal ity Calcium Magnesium Stool H. pylori Ag 09/26/21 16:10 WBC RBC Hgb Hct MCV MCH MCHC RDW Plt Count MPV Neut % (Auto) Lymph % (Auto) [place] % (Auto) Eos % (Auto) Baso % (Auto) Neut # (Auto) Lymph # (Auto) [place] # (Auto) Eos # (Auto) Baso # (Auto) Nucleated RBC % (a uto) Nucleated RBCs # APTT Sodium Potassium Chloride Carbon Dioxide Anion Gap BUN Creatinine GFR Calculation Glucose POC Glucose Calculated Osmolal ity Calcium Magnesium Stool H. pylori Ag See note A Vitals: Last Vital Signs Temp 97.6 F 09/29/21 08:00 Pulse 79 09/29/21 09:25 Resp 17 09/29/21 08:08 BP 150/69 09/29/21 09:25 Pulse Ox 98 09/29/21 08:08 Discharge Plan Discharge Patient Disposition: Home Condition: Stable Prescriptions: New prednisone 20 mg tablet 20 mg PO BID 5 Days Qty: 10 RF: 0 doxycycline hyclate 100 mg tablet 100 mg PO BID 5 Days Qty: 10 RF: 0 isosorbide mononitrate 30 mg tablet extended release 24 hr See Rx Instructions .ROUTE .COMPLEX Qty: 45 RF: 0 pantoprazole 40 mg Tablet,Delayed Release (Dr/Ec) 40 mg PO BID 30 Days Qty: 60 RF: 0 Continued aspirin [Adult Low Dose Aspirin] 81 mg tablet,delayed release (DR/EC) 81 mg PO DAILY RF: 0 atorvastatin 80 mg tablet 80 mg PO DAILY RF: 0 clopidogrel [Plavix] 75 mg tablet 75 mg PO DAILY RF: 0 metformin 1,000 mg tablet 1,000 mg PO BID RF: 0 trazodone 100 mg tablet 100 mg PO BEDTIME RF: 0 gabapentin 300 mg capsule 300 mg PO TID RF: 0 albuterol sulfate 90 mcg/actuation HFA aerosol inhaler 2 puff INHALATION Q6H PRN (Reason: shortness of breath or wheezing) Qty: 8.5 RF: 0 loratadine [Allergy Relief (loratadine)] 10 mg tablet 10 mg PO DAILY Qty: 60 RF: 0 fluticasone propionate [Flonase Allergy Relief] 50 mcg/actuation spray,suspension 1 spray intranasal BID Qty: 18.2 RF: 0 budesonide-formoterol [Symbicort] 160-4.5 mcg/actuation HFA aerosol inhaler 2 inh inhalation BID Qty: 10.2 RF: 3 hydrocortisone 10 mg tablet 10 mg PO TID RF: 0 insulin glargine 100 unit/mL Solution 42 unit SUBCUT BID RF: 0 Humalog U-100 Insulin 100 unit/mL Solution 14 unit SUBCUT TIDWM RF: 0 Changed metoprolol succinate 25 mg tablet extended release 24 hr 25 mg PO DAILY Qty: 0 RF: 0 Discontinued pantoprazole 20 mg tablet,delayed release (DR/EC) 20 mg PO DAILY RF: 0 isosorbide mononitrate 60 mg tablet extended release 24 hr 60 mg PO DAILY RF: 0 Discharge Orders: Discharge Order (Routine); Ordered 09/29/21 Ordered By: Jac Brown Referrals: Nova Irby MD [Physician] - 4-7 days Discharge Diet: Cardiac Discharge Activity: Resume usual activity Patient Instructions: Opioid Safety Activity Restrictions/Additional Instructions: - If you have recurrent chest pain please go to emergency room -Please follow-up with cardiology in 1 week -Follow-up with primary care for decision, for consideration of EGD for GERD Discharge Attestations Time Spent in Discharge Care*: less than 30 min Quality Metrics Clinical Quality Measures During this hospital stay, did patient experience: None Coding Level of Care Code Acute Chg [facility] note Diagnoses Epigastric pain R10.13 GERD (gastroesophageal reflux disease) K21.9 Esophagitis presence: esophagitis presence not specified Hypertension I10 Hypertension type: primary hypertension Diabetes mellitus, type II, insulin dependent E11.9; Z79.4 Hyperlipidemia E78.5 Chronic obstructive pulmonary disease J44.9 CAD (coronary artery disease) I25.10 Coronary Disease-Associated Artery/Lesion type: [place] artery [place] vs. transplanted heart: [place] heart Associated angina: unspecified whether angina present
[2021-09-29 15:57] LABS: Osmolality Serum 299 mOsm/kg (278-305)
--- NOTE | 2021-09-29 17:10 | PM.PN ---
Subjective Subjective: Interval history: Patient had stress test and results of stress test were discussed with the patient. Patient remains chest pain-free with improved shortness of breath. Medications: Reviewed: Yes Vitals/I&O/Wt Last Vital Signs Temp 97.7 F 09/29/21 16:00 Pulse 62 09/29/21 16:00 Resp 18 09/29/21 16:00 BP 155/89 09/29/21 16:00 Pulse Ox 98 09/29/21 16:00 09/29/21 09/29/21 09/29/21 06:59 14:59 22:59 Intake Total 120 / 120 Output Total 1200 / 1800 250 / 250 Balance -1200 / -618.550 -130 / -130 Physical Exam Narrative: EXAM NARRATIVE: GENERAL: Averagely built and averagely nourished in no acute distress HEENT: Pupils equal round reactive to light. No pallor or icterus. NECK: No JVD. No carotid bruit. CARDIOVASCULAR SYSTEM: S1-S2 regular. No S3 or S4 present. No murmur rubs or gallops. RESPIRATORY SYSTEM: Chest clear to auscultation. No wheezes rhonchi or rubs heard. No use of accessory muscles. ABDOMEN: Soft, nontender and nondistended. Normal bowel sounds present. EXTREMITIES: No cyanosis or clubbing. No edema. No signs of chronic venous insufficiency. ROBOTICS SOFTWARE ENGINEER: Patient is alert oriented ?3. No focal neurological deficits. Data : 09/29/21 02:10 09/29/21 02:10 A&P Assessment and plan (1) Chest pain: Pleurtic chest pain, EKG with mild ST segment elevation in inferior leads. Q wave in inferior leads. -No changes on follow-up EKGs yesterday and this morning. -Chest pain has improved. Echocardiogram with normal LV function and no regional wall motion abnormalities -repeat troponin x 3 (2 sets) negative. -ProBNP normal. ESR 13 and CRP normal -home imdur was started and pain has improved -I have requested for record. -May continue with ACS protocol in interim. 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 Even though medical records were not obtained, patient tells there was a small distal obstruction for which medical management was opted for. -I will follow up on the records and try and get it through office on discharge. -Increase Imdur to 30 mg a.m. and 15 mg p.m. -Blood pressure and heart rate log. -Follow-up in 2 weeks in [facility]. Status: Acute Qualifiers: Chest pain type: precordial pain Qualified Code(s): R07.2 - Precordial pain (2) CAD (coronary artery disease): CAD with history of stents -No records obtained so far Status: Chronic Qualifiers: Coronary Disease-Associated Artery/Lesion type: [place] artery [place] vs. transplanted heart: [place] heart Associated angina: unspecified whether angina present Qualified Code(s): I25.10 - Atherosclerotic heart disease of [place] coronary artery without angina pectoris (3) Hypertension: Mild concentric left ventricular hypertrophy noted on echocardiogram Status: Chronic Qualifiers: Hypertension type: primary hypertension Qualified Code(s): I10 - Essential (primary) hypertension (4) Diabetes mellitus, type II, insulin dependent: Status: Chronic (5) GERD (gastroesophageal reflux disease): Status: Chronic Qualifiers: Esophagitis presence: esophagitis presence not specified Qualified Code(s): K21.9 - Gastro-esophageal reflux disease without esophagitis Additional A&P Information Mixed hyperlipidemia Triglyceridemia Mild to moderate aortic regurgitation Hyponatremia Leucocytosis Diverticulosis Thank you for allowing me to participate in patient's care. Please feel free to call with questions or concerns Attestations Medical Necessity Statement*: Stable to be discharged from cardiac standpoint Time Spent in Patient Care: 16 - 35 minutes (>than 50% of time spent in counselling and/or direct pt care on unit). Coding Level of Care Code Acute Underwriting Operations Manager for Dayana Méndez Diagnoses Chest pain R07.2 Chest pain type: precordial pain CAD (coronary artery disease) I25.10 Coronary Disease-Associated Artery/Lesion type: [place] artery [place] vs. transplanted heart: [place] heart Associated angina: unspecified whether angina present Hypertension I10 Hypertension type: primary hypertension Diabetes mellitus, type II, insulin dependent E11.9; Z79.4 GERD (gastroesophageal reflux disease) K21.9 Esophagitis presence: esophagitis presence not specified
--- NOTE | 2021-09-29 20:00 | PC.NURSE ---
Patient was discharged prior to shift change. This nurse never laid eyes on the patient.
[2021-09-30 13:22] LABS: Osmolality Urine 719 mOsm/kg (50-1200)
== END 2021-09-29 19:00 | disposition home or self-care (01) | DRG 303 ==
LOC: ER 21:08 → MEDSURG 21:32
PROVIDERS: Internal Medicine; Internal Medicine Cardiovascular Disease; Admitting Provider Hospitalist; Emergency Provider Emergency Medicine; Visit Provider Family Medicine
DX: I25.110 Atherosclerotic heart disease of native coronary artery with unstable angina pectoris (principal); J44.1 Chronic obstructive pulmonary disease with (acute) exacerbation; E87.1 Hypo-osmolality and hyponatremia; Z95.5 Presence of coronary angioplasty implant and graft; Z87.891 Personal history of nicotine dependence; E11.65 Type 2 diabetes mellitus with hyperglycemia; N40.0 Benign prostatic hyperplasia without lower urinary tract symptoms; K76.0 Fatty (change of) liver, not elsewhere classified; K21.9 Gastro-esophageal reflux disease without esophagitis; E78.2 Mixed hyperlipidemia; I10 Essential (primary) hypertension; Z87.442 Personal history of urinary calculi; K59.00 Constipation, unspecified; K57.90 Diverticulosis of intestine, part unspecified, without perforation or abscess without bleeding; I25.2 Old myocardial infarction; E78.1 Pure hyperglyceridemia; R10.13 Epigastric pain; Z79.51 Long term (current) use of inhaled steroids; Z79.4 Long term (current) use of insulin; Z79.84 Long term (current) use of oral hypoglycemic drugs; Z79.02 Long term (current) use of antithrombotics/antiplatelets; Z79.82 Long term (current) use of aspirin; I35.1 Nonrheumatic aortic (valve) insufficiency
CPT/HCPCS: 36415; 36416; 36600; 71045; 74018; 74177; 78452; 80048; 80061; 80076; 81003; 82150; 82803; 82962; 83036; 83605; 83690; 83721; 83735; 83880; 83930; 83935; 84100; 84145; 84300; 84478; 84484; 85025; 85049; 85378; 85610; 85651; 85730; 86140; 87338; 87635; 93005; 93017; 93306; 94640; 94660; 96360; 96372; 99285; A9500; C9113; G0378; J1644; J1815 ×2; J2405; J2785; J2920; J7030; J7040; J7626; Q0144; Q9967

== ENCOUNTER → 2022-04-13 11:12 | Outpatient (BNVA) | payer MEDICARE, SELFPAY | PROVIDERS: Visit Provider Emergency Medicine | DX: Z20.822 Contact with and (suspected) exposure to COVID-19 (principal); R07.9 Chest pain, unspecified | CPT/HCPCS: 87426 ==

== ENCOUNTER → 2022-05-30 16:40 | Outpatient (BNVA) | payer MEDICARE, MEDICAID, SELFPAY | PROVIDERS: Visit Provider Emergency Medicine | DX: M79.641 Pain in right hand (principal); M79.89 Other specified soft tissue disorders | CPT/HCPCS: 73130 ==

== ENCOUNTER → 2022-10-05 13:49 | Outpatient (BNVA) | payer MEDICARE, SELFPAY | PROVIDERS: Visit Provider Nurse Practitioner Family | DX: R10.9 Unspecified abdominal pain (principal) | CPT/HCPCS: 81000 ==

== ENCOUNTER 2023-10-13 20:09 | Emergency (ER) | payer OTHER, SELFPAY ==
[2023-10-13 20:09] VITALS: BP 159/95; PULSE 77; RESP 18; TEMP 36.5; O2SAT 95; BMI 30.7
--- NOTE | 2023-10-13 20:14 | ECG_ITS ---
[facility] Test Date: 2023-10-13 Pat Name: Kumar Whelan Department: Room: Gender: Male [employer]: : 1960 Requested By: Atul House Order Number: [id number] Chad MD: Dashawn Anaya M.D. Measurements Intervals [place] Rate: 75 P: 44 NH: 182 QRS: -19 QRSD: 87 T: 28 QT: 365 QTc: 408 Interpretive Statements SINUS RHYTHM INFERIOR MYOCARDIAL INFARCTION , PROBABLY OLD [40+ ms Q WAVE AND/OR ST/T ABNORMALITY IN II/aVF] Compared to ECG 09/28/2021 09:00:48 Sinus bradycardia no longer present Myocardial infarct finding still present Electronically Signed On 10-14-2023 9:29:12 PROFILE STITCHING MACHINE OPERATOR by Dashawn Anaya M.D. [email or web address]
--- NOTE | 2023-10-13 20:14 | XRR_ITS ---
PROCEDURE INFORMATION: Exam: XR Chest Exam date and time: 10/13/2023 8:32 PM Age: 63 years old Clinical indication: Angina pectoris; Prior surgery; Surgery date: 6+ months; Surgery type: Cardiac stents x 7 (most recent 2018); Patient HX: Mediastinal chest pain; HX HTN, copd TECHNIQUE: Imaging protocol: Radiologic exam of the chest. Views: 1 view. COMPARISON: CR XR chest 1V portable [id number] 09/25/2021 7:14 PM FINDINGS: Lungs: Lungs are clear. Pleural spaces: No pleural effusion. No pneumothorax. Heart/Mediastinum: Normal cardiomediastinal silhouette. Coronary stents in place. Bones/joints: No acute osseous abnormality. XR/XR chest 1V portable [id number] IMPRESSION: No acute findings.
--- NOTE | 2023-10-13 20:23 | ED_ITS ---
HPI - Chest Pain 2 General: Chief Complaint: Chest Pain Stated Complaint: CP Time Seen by Provider: 10/13/23 20:09 History of Present Illness: Patient presents to the ER by EMS from home with complaints of chest pain that radiates into his back and high blood sugar. EMS gave the patient 3 and 24 mg aspirin, 1 nitro and 500 mL normal saline. Their blood sugar monitor read high. Patient said he began having chest pain over the last day or 2 and began getting mildly short of breath and very fatigued with minimal exertion. Patient said the pain at worst was about 8 on his left chest that radiated to his back. Patient rates the pain now 1. Patient is on Plavix. Patient has had approximately 7 stents with the last 1 being approximately 4 to 5 years ago. Patient is a diabetic who knows he has uncontrolled diabetes however he also has chronic pancreatitis which they are trying to get under control and he says this is the cause of his uncontrolled sugars. Patient currently has pancreatic stents in place. Patient has seen Dr. Irby in the past per the record had an echo on January 2021 EF approximately 63%, cardiac cath November 2019 proximal LAD 40% stenosed was previously stented, mid LAD 20% stenosed previously stented, Review of Systems 2 General: Reports: 10 or more systems reviewed and unremarkable except in HPI and below PFSH ED 2 PFSH: Medical History Sleep apnea Fatty liver Benign prostate hyperplasia Kidney stones GERD (gastroesophageal reflux disease) Diabetes mellitus, type II, insulin dependent Hyperlipidemia Hypertension Chronic obstructive pulmonary disease CAD (coronary artery disease) Surgical History History of urethral stent History of shoulder surgery as a child History of coronary artery stent placement reports 6-7 stents, done at [facility] Family History Father CAD (coronary artery disease) Lung cancer Diabetes Social History Smoking and tobacco/nicotine status: never used tobacco/nicotine Alcohol intake: former Former alcohol use details: quit ~ 16 years ago, former heavy drinker Substance/Drug Use: never Household members: spouse Marital status: service: Yes Physical Exam 2 Const: COMMON NORMALS: no acute distress, average body habitus, patient oriented x3, no limitations, healthy appearing, alert and well nourished HENMT: COMMON NORMALS: normocephalic, atraumatic, hearing grossly normal bilaterally, external ears normal, EAC's normal, Normal external nose present, moist oral mucous membranes and oropharynx normal HEAD & SCALP: normocephalic and atraumatic NOSE: Normal external nose present EXTERNAL EAR: Yes external ears normal EXTERNAL AUDITORY CANAL: EAC's normal Neck/C-Spine: COMMON NORMALS: no JVD Chest: COMMONS NORMALS: normal inspection of the chest and normal palpation of entire chest wall Resp: COMMON NORMALS: normal respiratory effort, No retractions, No use of accessory muscles and clear to auscultation bilaterally AUSCULTATION: clear to auscultation bilaterally Cardio: COMMON NORMALS: no JVD, regular rate, regular rhythm, S1 normal heart sound present, S2 normal heart sound present, No gallops present (Cardio), No clicks present (Cardio), No murmurs present (Cardio) and No rub (Cardio) R ATE: regular rate RHYTHM: regular rhythm HEART SOUNDS: S1 normal heart sound present and S2 normal heart sound present GI: COMMON NORMALS: Normal to inspection, nondistended, normoactive bowel sounds present, Soft to palpation, non-tender and No hepatosplenomegaly present PALPATION: Yes Soft to palpation and Yes No hepatosplenomegaly present Neuro: COMMON NORMALS: patient oriented x3 SENSORIUM/ORIENTATION: Yes alert Course 2 Vital Signs: Vital signs: Vital Signs Temperature 97.7 F 10/13/23 20:09 Pulse Rate 80 10/13/23 22:32 Respiratory Rate 16 10/13/23 22:32 Blood Pressure 126/74 10/13/23 22:32 Pulse Oximetry 94 10/13/23 22:32 Oxygen Delivery Me thod Room Air 10/13/23 20:09 MDM - Chest Pain Medical Decision Making Patient presented to the ER with chest pain, patient was worked up in a standard chest pain fashion which did not reveal any acute care coronary cause of his chest pain. Patient's blood sugar was elevated at 613. Patient was given 15 units of IV insulin and recheck his blood sugar was much improved and was in the 400s. Patient will be discharged home to follow-up with his PCP on as-needed basis within the next 7 days. Differential Diagnosis Unlikely acute massive pulmonary embolism, acute respiratory failure, acute myocardial infarction, cardiac arrest or sudden cardiac Medical Records I reviewed the patient's medical records. Lab Data I reviewed the patient's lab results. 10/13/23 20:28 10/13/23 20: Radiology Impressions Chest X-Ray 10/13/23 20: IMPRESSION: No acute findings. Laboratory Results WBC 7.14 10^3/uL (3.29-11.43) 10/13/23: RBC 4.72 10^6/uL (3.85-5.65) 10/13/23 20: Hgb 13.40 g/dL (11.27-16.99) 10/13/23: Hct 36.9 % (37-53) L 10/13/23: MCV 78.2 fl (82-101) L 10/13/23: MCH 28.4 pg (27-33) 10/13/23: MCHC 36.3 g/dL (30-55) 10/13/23: RDW 14.3 % (12.1-15.1) 10/13/23: Plt Count 302 10^3/cmm (157-399) 10/13/23: MPV 10.6 fL (7.4-10.4) H 10/13/23: Neut % (Auto) 55.0 % 10/13/23: Lymph % (Auto) 34.7 % 10/13/23: [place] % (Auto) 6.6 % 10/13/23: Eos % (Auto) 2.9 % 10/13/23 20: Baso % (Auto) 0.4 % 10/13/23: Neut # (Auto) 3.92 10^3/uL (1.8-7.7) 10/13/23: Lymph # (Auto) 2.5 10^3/uL (0.8-4.8) 10/13/23: [place] # (Auto) 0.5 10^3/uL (0.2-0.9) 10/13/23 20: Eos # (Auto) 0.2 10^3/uL (0.0-0.8) 10/13/23 20:28 Baso # (Auto) 0.0 10^3/uL (0.0-0.1) 10/13/23 20: Nucleated RBC % (auto) 0.8 % 10/13/23 20: Nucleated RBCs # 0.1 /100WBC 10/13/23 20: PT 12.80 SECONDS (12.1-14.9) 10/13/23 20: INR 0.93 (0.8-1.2) 10/13/23 20: Sodium 129 mmol/L (136-145) L 10/13/23 20: Potassium 4.3 mmol/L (3.5-5.1) 10/13/23 20: Chloride 94 mmol/L (98-107) L 10/13/23 20: Carbon Dioxide 19 mmol/L (22-29) L 10/13/23 20: Anion Gap 20.3 (5-19) H 10/13/23 20: BUN 14 mg/dL (8-23) 10/13/23 20: Creatinine 0.8 mg/dL (0.7-1.2) 10/13/23 20: GFR Calculation 98.0 mL/min (90-130) 10/13/23 20: Glucose 613 mg/dL (65-115) H* 10/13/23 20: POC Glucose 407 mg/dL (70-110) H 10/13/23 22:32 Calculated Osmolality 297 mOsm/kg (285-295) H 10/13/23 20: Calcium 9.2 mg/dL (8.5-10.5) 10/13/23 20: Magnesium 1.8 mg/dL (1.7-2.3) 10/13/23 20: Total Bilirubin 0.2 mg/dL (0.15-1.2) 10/13/23 20: AST 12 U/L (0-40) 10/13/23 20: ALT 10 U/L (0-41) 10/13/23 20: Alkaline Phosphatase 241 U/L (40-130) H 10/13/23 20: Troponin T Baseline 18 ng/L (0-15) H 10/13/23 20:28 Troponin T 120 Minute 19.18 ng/L (0-15) H 10/13/23 22:10 Delta Troponin T 1.18 ABS# (0-10) 10/13/23 22:10 Total Protein 7.0 g/dL (6.6-8.7) 10/13/23 20:28 Albumin 3.7 g/dL (3.5-5.2) 10/13/23 20:28 Globulin 3.3 g/dL (1.3-4.6) 10/13/23 20:28 Lipase 37 U/L (13-60) 10/13/23 20:28 Urine Color Straw (Yellow) 10/13/23 20:38 Urine Appearance Clear (CLEAR) 10/13/23 20:38 Urine pH 6 (5-7) 10/13/23 20:38 Ur Specific [place] 1.010 (1.005-1.030) 10/13/23 20:38 Urine Protein Neg (Negative) 10/13/23 20:38 Urine Glucose (UA) 4+ (Normal) H 10/13/23 20:38 Urine Ketones 1+ (Negative) H 10/13/23 20:38 Urine Blood Neg (Negative) 10/13/23 20:38 Urine Nitrate Negative (Negative) 10/13/23 20:38 Urine Bilirubin Neg (Negative) 10/13/23 20:38 Urine Urobilinogen Norm mg/dL (Negative) 10/13/23 20:38 Ur Leukocyte Esterase Negative (Negative) 10/13/23 20:38 Serum Ketones Negative (Negative) 10/13/23 20:28 All radiology interpretation(s) finalized by discharge EKG Data EKG 1: I personally reviewed and interpreted this EKG as follows: EKG interpretation date: 10/13/23 EKG interpretation time: 20:14 Prior EKG tracings: not available for review Interpretation: EKG showed ventricular rate 75 beats minute, IN interval 182, QRS duration 87, QTc 393, sinus rhythm, Discharge Plan Discharge Patient Disposition: Home Clinical Impression: Chest pain, Diabetes mellitus, type II, insulin dependent Condition: Stable Prescriptions: No Action aspirin [Adult Low Dose Aspirin] 81 mg tablet,delayed release (DR/EC) 81 mg PO DAILY atorvastatin 80 mg tablet 80 mg PO DAILY clopidogrel [Plavix] 75 mg tablet 75 mg PO DAILY metformin 1,000 mg tablet 1,000 mg PO BID trazodone 100 mg tablet 100 mg PO BEDTIME gabapentin 300 mg capsule 300 mg PO TID albuterol sulfate 90 mcg/actuation HFA aerosol inhaler 2 puff INHALATION Q6H PRN (Reason: shortness of breath or wheezing) Qty: 8.5 0RF loratadine [Allergy Relief (loratadine)] 10 mg tablet 10 mg PO DAILY Qty: 60 0RF fluticasone propionate [Flonase Allergy Relief] 50 mcg/actuation spray,suspension 1 spray intranasal BID Qty: 18.2 0RF Rx Instructions: administer into each nostril budesonide-formoterol [Symbicort] 160-4.5 mcg/actuation HFA aerosol inhaler 2 inh inhalation BID Qty: 10.2 3RF hydrocortisone 10 mg tablet 20 mg PO TID melatonin 10 mg capsule 20 mg PO DAILY multivitamin Tablet 1 tab PO DAILY nitroglycerin 0.4 mg tablet, sublingual 0.4 mg sublingual Q5M PRN (Reason: chest pain) Qty: 50 6RF Rx Instructions: do not exceed 3 doses per episode isosorbide mononitrate 30 mg tablet extended release 24 hr 30 mg PO BID Qty: 60 6RF insulin glargine 100 unit/mL Solution 42 unit SUBCUT BID Humalog U-100 Insulin 100 unit/mL Solution 14 unit SUBCUT TIDWM metoprolol succinate 25 mg tablet extended release 24 hr 25 mg PO DAILY Qty: 0 0RF Discharge Orders: Discharge ED (Routine); Ordered 10/13/23 Ordered By: Atul House Patient Instructions: Chest Pain (DC), Diabetic Hyperglycemia (ED) Activity Restrictions/Additional Instructions: Your chest pain workup in the ER was essentially negative for any acute cardiac cause. Your blood sugar has markedly improved with the insulin. Please monitor your blood sugar and if your chest pain Returns or worsens or changes please feel free to return to the ER otherwise follow-up with your family practice physician within the next 7 days for further evaluation and treatment Coding Level of Care Code ED Medical Authorization Specialist for Dayana Méndez
[2023-10-13 20:41] LABS: Add Urine Microscopic? NO; Charge for UA Resulting for Rev
[2023-10-13 20:46] LABS: INR 0.93 (0.8-1.2); Ketone (Acetest) Serum Negative (Negative)
[2023-10-13 20:53] LABS: Troponin(5th) Baseline 18 ng/L (0-15)
[2023-10-13 20:54] LABS: Basophils % 0.4 %; Eosinophils # 0.2 10^3/uL (0.0-0.8); Eosinophils % 2.9 %; Hematocrit 36.9 % (37-53); Lymphocytes # 2.5 10^3/uL (0.8-4.8); Lymphocytes % 34.7 %; Mean Corpuscular HGB Conc 36.3 g/dL (30-55); Mean Corpuscular Hemoglobin 28.4 pg (27-33); Mean Corpuscular Volume 78.2 fl (82-101); Mean Platelet Volume 10.6 fL (7.4-10.4); Monocytes # 0.5 10^3/uL (0.2-0.9); Monocytes % 6.6 %; Neutrophils # 3.92 10^3/uL (1.8-7.7); Nucleated Red Blood Cells # 0.1 /100WBC; Nucleated Red Blood Cells % 0.8 %; Platelet Count 302 10^3/cmm (157-399); Red Blood Count 4.72 10^6/uL (3.85-5.65); Red Cell Distribution Width 14.3 % (12.1-15.1); White Blood Count 7.14 10^3/uL (3.29-11.43)
[2023-10-13 21:04] LABS: Bilirubin Urine Neg (Negative); Blood Urine Neg (Negative); Glucose Urine UA 4+ (Normal); Ketones Urine 1+ (Negative); Leukocyte Esterase Urine Negative (Negative); Nitrate Urine Negative (Negative); Protein Urine Neg (Negative); Urine Appearance Clear (CLEAR); Urine Color Straw (Yellow); Urobilinogen Urine Norm (Negative); pH Urine 6 (5-7)
[2023-10-13 21:23] LABS: Alanine Aminotransferase 10 U/L (0-41); Albumin Level 3.7 g/dL (3.5-5.2); Alkaline Phosphatase 241 U/L (40-130); Blood Urea Nitrogen 14 mg/dL (8-23); Calcium 9.2 mg/dL (8.5-10.5); Carbon Dioxide 19 mmol/L (22-29); Chloride 94 mmol/L (98-107); Globulin 3.3 g/dL (1.3-4.6); Lipase 37 U/L (13-60); Magnesium 1.8 mg/dL (1.7-2.3); Osmolality Calculated 297 mOsm/kg (285-295); Sodium 129 mmol/L (136-145); Total Bilirubin 0.2 mg/dL (0.15-1.2)
[2023-10-13 21:24] LABS: Glucose 613 mg/dL (65-115)
[2023-10-13 21:25] LABS: Anion Gap 20.3 (5-19); Potassium 4.3 mmol/L (3.5-5.1)
[2023-10-13 21:26] LABS: Aspartate Amino Transferase 12 U/L (0-40)
[2023-10-13] MEDS: insulin regular-human 100 units/1 mL 15 UNIT IVP (22:02)
[2023-10-13 22:32] VITALS: BP 126/74; PULSE 80; RESP 16; O2SAT 94
[2023-10-13 22:35] LABS: Glucose Point of Care 407 mg/dL (70-110)
[2023-10-13 22:36] LABS: Troponin 5 2HR 19.18 ng/L (0-15); Troponin 5 2HR Delta 1.18 ABS# (0-10)
[2023-10-13 23:42] VITALS: BP 126/74; PULSE 80; RESP 16; TEMP 36.5; O2SAT 94
[2023-10-13 23:43] LABS: Glucose Point of Care 324 mg/dL (70-110)
== END 2023-10-13 23:43 | disposition home or self-care (01) ==
PROVIDERS: Emergency Provider Emergency Medicine
DX: R07.9 Chest pain, unspecified (principal); E11.9 Type 2 diabetes mellitus without complications; Z79.82 Long term (current) use of aspirin; Z79.02 Long term (current) use of antithrombotics/antiplatelets; Z79.84 Long term (current) use of oral hypoglycemic drugs; Z79.4 Long term (current) use of insulin; E78.5 Hyperlipidemia, unspecified; I25.10 Atherosclerotic heart disease of native coronary artery without angina pectoris; I10 Essential (primary) hypertension; J44.9 Chronic obstructive pulmonary disease, unspecified
CPT/HCPCS: 36415; 36416; 71045; 80053; 81003; 82009; 82962; 83690; 83735; 84484; 85025; 85610; 93005; 96374; 99285; J1815

== ENCOUNTER → 2024-07-02 15:03 | Outpatient (BNVA) | payer OTHER, SELFPAY | PROVIDERS: Visit Provider Nurse Practitioner | DX: Z34.90 Encounter for supervision of normal pregnancy, unspecified, unspecified trimester (principal) | CPT/HCPCS: 81000 ==